=== PATIENT | female | born 1945 | race Caucasian/White ===

== ENCOUNTER 2018-08-14 09:37 | Inpatient (IN) | payer BC ==
[~2018-08-14] VITALS: Ht 157.5 cm; Wt 91.7 kg
--- NOTE | 2018-08-14 09:55 | PHYS DOC ---
Past Medical History Past Medical History: Diabetes-Type II, Hypertension Additional Past Medical Histor: blind in left eye Smoking: Cigarettes Adult General Chief Complaint Chief Complaint: SHORTNESS OF BREATH HPI HPI Patient is a 73-year-old female, smoker, who presents to the emergency department for evaluation. She states that she began experiencing shortness of breath over the past 2 days, along with a cough. EMS reported an oxygen saturation in the 70s upon their arrival, which improved to the upper 90s with a nonrebreather. The patient denies any pain. She does admit to a cough. She is a smoker, but states she has no other prior lung history that she is aware of. She denies any chest pain, dizziness or lightheadedness, numbness, or weakness. There are no alleviating or exacerbating factors to the patient's symptoms except that exertion worsens or shortness of breath. Review of Systems Review of Systems Constitutional: Denies fever or chills [] Eyes: Denies change in visual acuity, redness, or eye pain [] HENT: Denies nasal congestion or sore throat [] Respiratory: Reports cough and shortness of breath [] Cardiovascular: The patient denies any chest pain, palpitations, or orthopnea [] GI: Denies abdominal pain, nausea, vomiting, bloody stools or diarrhea [] : Denies dysuria or hematuria [] Musculoskeletal: Denies back pain or joint pain [] Integument: Denies rash or skin lesions [] Neurologic: Denies headache, focal weakness or sensory changes [] Endocrine: Denies polyuria or polydipsia [] All other systems were reviewed and found to be within normal limits, except as documented in this note. Current Medications Current Medications Current Medications Medications (Trade) Dose Ordered Sig/Nash Start Time Stop Time Status Last Admin Dose Admin Albuterol/ Ipratropium (Duoneb) 3 ml 1X ONCE 08/14/18 10:00 08/14/18 10:01 DC 08/14/18 10:14 3 ML Azithromycin 250 ml @ 250 mls/hr 1X ONCE 08/14/18 10:30 08/14/18 11:29 DC Ceftriaxone Sodium (Rocephin) 1 gm 1X ONCE 08/14/18 10:30 08/14/18 10:32 DC 08/14/18 11:58 1 GM Allergies Allergies Allergies Coded Allergies Type Severity Reaction Last Updated Verified No Known Drug Allergies 08/14/18 No Physical Exam Physical Exam PHYSICAL EXAM: CONSTITUTIONAL: Well developed, well nourished HEAD: normocephalic, atraumatic EENT: I the left cornea is opacified, the right pupil is round and reactive. Conjunctivae normal color, sclerae non-icteric; moist mucous membranes. NECK: Supple, non-tender; no meningismus. LUNGS: There are globally diminished breath sounds in all lung [place], with some mildly scattered coarse expiratory rhonchi, without wheezes or rales. HEART: Regular rate and rhythm, no murmur CHEST: No deformity; non-tender ABDOMEN: The abdomen is soft, and non-tender, no masses or bruits. EXTREM: Normal ROM; no deformity, no calf tenderness. Normal pulses palpable in all extremities. There is no pedal edema. SKIN: No rash; no diaphoresis NEURO: Alert; normal speech and cognition; CN's grossly intact; strength grossly intact without focal deficit. BACK: No CVA TTP. Current Patient Data Vital Signs Vital Signs Date Time Temp Pulse Resp B/P (MAP) Pulse Ox O2 Delivery O2 Flow Rate FiO2 08/14/18 10:14 92 Nasal Cannula 3.0 08/14/18 09:44 98.4 93 20 149/82 (104) 98.4 Lab Values Laboratory Tests Test 08/14/18 10:47 White Blood Count 17.9 x10^3/uL (4.0-11.0) H Red Blood Count 5.27 x10^6/uL (3.50-5.40) Hemoglobin 15.0 g/dL (12.0-15.5) Hematocrit 45.1 % (36.0-47.0) Mean Corpuscular Volume 86 fL (79-100) Mean Corpuscular Hemoglobin 28 pg (25-35) Mean Corpuscular Hemoglobin Concent 33 g/dL (31-37) Red Cell Distribution Width 15.0 % (11.5-14.5) H Platelet Count 327 x10^3/uL (140-400) Neutrophils (%) (Auto) 59 % (31-73) Lymphocytes (%) (Auto) 30 % (24-48) Monocytes (%) (Auto) 10 % (0-9) H Eosinophils (%) (Auto) 0 % (0-3) Basophils (%) (Auto) 0 % (0-3) Neutrophils # (Auto) 10.6 x10^3uL (1.8-7.7) H Lymphocytes # (Auto) 5.3 x10^3/uL (1.0-4.8) H Monocytes # (Auto) 1.9 x10^3/uL (0.0-1.1) H Eosinophils # (Auto) 0.0 x10^3/uL (0.0-0.7) Basophils # (Auto) 0.1 x10^3/uL (0.0-0.2) Platelet Estimate Pending Prothrombin Time 12.9 SEC (11.7-14.0) Prothrombin Time INR 1.0 (0.8-1.1) Sodium Level 132 mmol/L (136-145) L Potassium Level 3.8 mmol/L (3.5-5.1) Chloride Level 91 mmol/L (98-107) L Carbon Dioxide Level 33 mmol/L (21-32) H Anion Gap 8 (6-14) Blood Urea Nitrogen 25 mg/dL (7-20) H Creatinine 1.0 mg/dL (0.6-1.0) Estimated GFR (Cockcroft-Gault) 54.5 BUN/Creatinine Ratio 25 (6-20) H Glucose Level 148 mg/dL (70-99) H Lactic Acid Level 1.0 mmol/L (0.4-2.0) Calcium Level 8.7 mg/dL (8.5-10.1) Total Bilirubin 0.4 mg/dL (0.2-1.0) Aspartate Amino Transferase (AST) 37 U/L (15-37) Alanine Aminotransferase (ALT) 44 U/L (14-59) Alkaline Phosphatase 83 U/L (46-116) Troponin I Quantitative < 0.017 ng/mL (0.000-0.055) MN-Ike-J-Type Natriuretic Peptide 263 pg/mL (0-124) H Total Protein 7.9 g/dL (6.4-8.2) Albumin 3.1 g/dL (3.4-5.0) L Albumin/Globulin Ratio 0.6 (1.0-1.7) L Laboratory Tests 08/14/18 10:47 Laboratory Tests 08/14/18 10:47 EKG EKG [Normal sinus rhythm at a rate of 87 beats for minute, normal axis, normal intervals, there are no acute ischemic ST/T changes. Poor anterior R progression is present.] Radiology/Procedures Radiology/Procedures [PROCEDURE: CHEST PA & LATERAL EXAM: Chest, 2 views. HISTORY: Fatigue. Shortness of breath. COMPARISON: None. FINDINGS: 2 views of the chest are obtained. There is diffuse lower lobe predominant increased interstitial opacity suggesting interstitial infiltrate. There is no consolidation, pleural effusion or pneumothorax. There is mild enlargement of the cardiac silhouette. IMPRESSION: 1. Suspected diffuse lower lobe predominant interstitial infiltrate. This is likely superimposed on chronic interstitial changes. 2. Mild cardiomegaly.] Course & Med Decision Making Course & Med Decision Making Pertinent Labs and Imaging studies reviewed. (See chart for details) [12:00 PM: I spoke with the patient's PCP who will admit her for further evaluation and treatment.] Dragon Disclaimer Dragon Disclaimer This electronic medical record was generated, in whole or in part, using a voice recognition dictation system. Departure Departure Impression: Primary Impression: Pneumonia Additional Impression: Hypoxia Disposition: 09 ADMITTED INPATIENT Admitting Physician: Raymundo Fried Condition: GUARDED Problem Qualifiers LUZ MARINA WHITFIELD MD Aug 14, 2018 09:55
[2018-08-14] MEDS ORDERED: IPRATRPIUM/ALBUTEROL 0.5/2.5MG 3 ML NEBU. NEB ONE (10:00)
--- NOTE | 2018-08-14 10:24 | RAD ---
EXAM: Chest, 2 views. HISTORY: Fatigue. Shortness of breath. COMPARISON: None. FINDINGS: 2 views of the chest are obtained. There is diffuse lower lobe predominant increased interstitial opacity suggesting interstitial infiltrate. There is no consolidation, pleural effusion or pneumothorax. There is mild enlargement of the cardiac silhouette. IMPRESSION: 1. Suspected diffuse lower lobe predominant interstitial infiltrate. This is likely superimposed on chronic interstitial changes. 2. Mild cardiomegaly. Electronically signed by: Heather Hernandez MD (08/14/2018 10:21 AM) [id number]
[2018-08-14] MEDS ORDERED: AZITHRMYCN 500MG IVPB FOR OMNI 250 ML IV ONE (10:30)
[2018-08-14] MEDS ORDERED: cefTRIAXone IV Push 1 GM VIAL. IVP ONE (10:30)
[2018-08-14 11:08] LABS: BASO # 0.1 x10^3/uL (0.0-0.2); BASO % 0 % (0-3); EOS % 0 % (0-3); HEMATOCRIT 45.1 % (36.0-47.0); LYMPH # 5.3 x10^3/uL (1.0-4.8); LYMPH % 30 % (24-48); MEAN CORPUSCULAR HEMOGLOBIN 28 pg (25-35); MEAN CORPUSCULAR HGB CONC 33 g/dL (31-37); MEAN CORPUSCULAR VOLUME 86 fL (79-100); MONO # 1.9 x10^3/uL (0.0-1.1); MONO % 10 % (0-9); NEUT # 10.6 x10^3uL (1.8-7.7); NEUT % 59 % (31-73); PLATELET COUNT 327 x10^3/uL (140-400); RED BLOOD COUNT 5.27 x10^6/uL (3.50-5.40); WHITE BLOOD COUNT 17.9 x10^3/uL (4.0-11.0)
[2018-08-14 11:20] LABS: CALCIUM 8.7 mg/dL (8.5-10.1); GFR 54.5; POTASSIUM 3.8 mmol/L (3.5-5.1)
[2018-08-14 11:27] LABS: PROTHROMBIN TIME PATIENT 12.9 SEC (11.7-14.0)
[2018-08-14 11:32] LABS: ALBUMIN 3.1 g/dL (3.4-5.0); ALBUMIN/GLOBULIN RATIO 0.6 (1.0-1.7); TOTAL BILIRUBIN 0.4 mg/dL (0.2-1.0); TOTAL PROTEIN 7.9 g/dL (6.4-8.2)
[2018-08-14 12:10] LABS: INFLUENZA A PATIENT POSITIVE (NEGATIVE)
[2018-08-14 12:11] LABS: INFLUENZA B PATIENT NEGATIVE (NEGATIVE)
[2018-08-14] MEDS ORDERED: OSELTAMIVIR 75 MG CAPSULE PO SCH (12:30)
--- NOTE | 2018-08-14 12:48 | EKG ---
[facility] [address] [place] [address] Test Date: 2018-08-14 Test Time: 10:18:00 Pat Name: CARLOTTA BALL Department: Room: 512 1 Gender: F Major Account Representative: : 1945 Requested By: LUZ MARINA WHITFIELD Order Number: [id number] Reading MD: Uli Barron MD Measurements Intervals [place] Rate: 87 P: 71 ID: [id number] QRS: 43 QRSD: 70 T: 49 QT: 356 QTc: 429 Interpretive Statements SINUS RHYTHM Electronically Signed On 08-21-2018 13:45:55 CDT by Uli Barron MD
[2018-08-14 12:51] LABS: % ATYL 6 % (0-0); % BANDS 15 % (0-9); % LYMPHS 23 % (24-48); % METAS 2 % (0-0); % MONOS 14 % (0-10); % SEGS 40 % (35-66); NUCLEATED RBC 1
[2018-08-14 12:53] LABS: PLT ESTIMATE ADEQUATE (ADEQUATE); POLYCHROMASIA SLIGHT; TOXIC VACUOLATION SLIGHT
[2018-08-14 14:28] VITALS: BP 94/74
[2018-08-14] MEDS ORDERED: FERR325T14 PO (16:47)
[2018-08-14] MEDS ORDERED: ASPI81TA50 PO (16:47)
[2018-08-14] MEDS ORDERED: LISI1TAB3 PO (16:47)
[2018-08-14] MEDS ORDERED: METF500T16 PO (16:47)
[2018-08-14] MEDS ORDERED: GLIM2TAB2 PO (16:47)
[2018-08-14] MEDS ORDERED: OSEL75CA13 PO (16:48)
[2018-08-14] MEDS ORDERED: PRAV20TA PO (16:57)
[2018-08-14 19:00] VITALS: BP 116/54
[2018-08-14] MEDS: ATORVASTATIN CALCIUM 10 MG TABLET. PO SCH (22:27)
[2018-08-14] MEDS: NYSTATIN TOPICAL POWDER 15GM BOTTLE. TP SCH (22:27)
[2018-08-14] MEDS: OSELTAMIVIR 75 MG CAPSULE PO SCH (22:27)
[2018-08-14 23:00] VITALS: BP 125/42
[2018-08-14] MEDS ORDERED: ALBUTEROL SULFATE 2.5 MG/3 ML NEBU. NEB PRN (23:00)
[2018-08-15 02:54] VITALS: BP 119/52
--- NOTE | 2018-08-15 06:58 | PDOC1 ---
History and Physical Date of Admission Date of Admission 08/14/18 Identification/Chief Complaint Chief Complaint Cough Source Source: Patient History of Present Illness History of Present Illness Pt states that she hasn't been feeling well for the past 4-5 days. She has not really eaten very much and has overall felt very lousy. She has had fever, chills and a non productive cough. She has been short of air. She has had diarrhea for the past 4-5 days. Past Medical History Cardiovascular: HTN, Hyperlipidemia Pulmonary: No pertinent hx GI: No pertinent hx Heme/Onc: Cancer Hepatobiliary: No pertinent hx Psych: No pertinent hx Rheumatologic: No pertinent hx Infectious disease: No pertinent hx ENT: No pertinent hx Renal/: No pertinent hx Endocrine: Diabetes Dermatology: No pertinent hx Past Surgical History Past Surgical History: Tonsillectomy, Hysterectomy Family History Family History: Diabetes, Heart Disease, Stroke Social History Smoke: 1 pack per day ALCOHOL: none Drugs: None Current Problem List Problem List Problems Medical Problems: (1) Hypoxia Status: Acute (2) Pneumonia Status: Acute Current Medications Current Medications Current Medications Medications (Trade) Dose Ordered Sig/Nash Start Time Stop Time Status Last Admin Dose Admin Albuterol Sulfate (Ventolin Neb Soln) 2.5 mg PRN Q2HRS PRN 08/14/18 23:00 Albuterol/ Ipratropium (Duoneb) 3 ml 1X ONCE 08/14/18 10:00 08/14/18 10:01 DC 08/14/18 10:14 3 ML Aspirin (Ecotrin) 81 mg DAILY 08/15/18 09:00 Atorvastatin Calcium (Lipitor) 5 mg QHS 08/14/18 21:00 08/14/18 22:27 5 MG Azithromycin 250 ml @ 250 mls/hr 1X ONCE 08/14/18 10:30 08/14/18 11:29 DC 08/14/18 12:06 250 MLS/HR Ceftriaxone Sodium (Rocephin) 1 gm 1X ONCE 08/14/18 10:30 08/14/18 10:32 DC 08/14/18 11:58 1 GM Ferrous Sulfate (Feosol) 325 mg DAILY 08/15/18 09:00 Glimepiride (Amaryl) 2 mg DAILY 08/15/18 09:00 Hydrochlorothiazide (Microzide) 12.5 mg DAILY 08/15/18 09:00 Lisinopril (Prinivil) 10 mg DAILY 08/15/18 09:00 Metformin HCl (Glucophage) 1,000 mg DAILY 08/15/18 09:00 Non-Formulary Medication (Lisinopril/ Hydrochlorothiazide (Lisinopril-Hctz 10-12.5 Mg Tab)) 1 tab DAILY 08/15/18 09:00 UNV Nystatin (Nystop) 1 mena BID 08/14/18 21:00 08/14/18 22:27 1 MENA Oseltamivir Phosphate (Tamiflu) 75 mg BID 08/14/18 21:00 08/19/18 20:59 08/14/18 22:27 75 MG Allergies Allergies Allergies Coded Allergies Type Severity Reaction Last Updated Verified No Known Drug Allergies 08/14/18 No ROS Review of System CONSTITUTIONAL: + fever, chills EYES: +chronic blindness left eye SKIN: No rash or itching CARDIOVASCULAR: No chest pain, syncope, palpitations, or edema RESPIRATORY: +SOB, cough GASTROINTESTINAL: No nausea, vomiting or abdominal pain NEUROLOGICAL: No headaches or weakness ENDOCRINE: No cold or heat intolerance GENITOURINARY: No urgency or frequency of urination MUSCULOSKELETAL: No back pain or joint pain LYMPHATICS: No enlarged lymph nodes PSYCHIATRIC: No anxiety or depression Physical Exam Physical Exam GEN.: No apparent distress. Alert and oriented. HEENT: Head is normocephalic, atraumatic NECK: Supple. LUNGS: rhonchi throughout, faint expiratory wheezing HEART: RRR, S1, S2 present. Peripheral pulses intact ABDOMEN: Soft, nontender. Positive bowel sounds. EXTREMITIES: Without any cyanosis. NEUROLOGIC: Normal speech, normal tone PSYCHIATRIC: Normal affect, normal mood. SKIN: No ulcerations Vitals Vitals Vital Signs Date Time Temp Pulse Resp B/P (MAP) Pulse Ox O2 Delivery O2 Flow Rate FiO2 08/15/18 02:54 98.3 79 18 119/52 (74) 94 Nasal Cannula 3.0 98.3 Labs Labs Laboratory Tests Test 08/14/18 10:35 08/14/18 10:47 08/14/18 16:30 08/14/18 20:54 Influenza Type A Antigen Positive (NEGATIVE) Influenza Type B Antigen Negative (NEGATIVE) White Blood Count 17.9 x10^3/uL (4.0-11.0) Red Blood Count 5.27 x10^6/uL (3.50-5.40) Hemoglobin 15.0 g/dL (12.0-15.5) Hematocrit 45.1 % (36.0-47.0) Mean Corpuscular Volume 86 fL (79-100) Mean Corpuscular Hemoglobin 28 pg (25-35) Mean Corpuscular Hemoglobin Concent 33 g/dL (31-37) Red Cell Distribution Width 15.0 % (11.5-14.5) Platelet Count 327 x10^3/uL (140-400) Neutrophils (%) (Auto) 59 % (31-73) Lymphocytes (%) (Auto) 30 % (24-48) Monocytes (%) (Auto) 10 % (0-9) Eosinophils (%) (Auto) 0 % (0-3) Basophils (%) (Auto) 0 % (0-3) Neutrophils # (Auto) 10.6 x10^3uL (1.8-7.7) Lymphocytes # (Auto) 5.3 x10^3/uL (1.0-4.8) Monocytes # (Auto) 1.9 x10^3/uL (0.0-1.1) Eosinophils # (Auto) 0.0 x10^3/uL (0.0-0.7) Basophils # (Auto) 0.1 x10^3/uL (0.0-0.2) Segmented Neutrophils % 40 % (35-66) Band Neutrophils % 15 % (0-9) Lymphocytes % 23 % (24-48) Atypical Lymphocytes % (Manual) 6 % (0-0) Monocytes % 14 % (0-10) Metamyelocytes % 2 % (0-0) Nucleated Red Blood Cells 1 Toxic Vacuolation Slight Platelet Estimate Adequate (ADEQUATE) Large Platelets Few Giant Platelets Occ Polychromasia Slight Prothrombin Time 12.9 SEC (11.7-14.0) Prothromb Time International Ratio 1.0 (0.8-1.1) Sodium Level 132 mmol/L (136-145) Potassium Level 3.8 mmol/L (3.5-5.1) Chloride Level 91 mmol/L (98-107) Carbon Dioxide Level 33 mmol/L (21-32) Anion Gap 8 (6-14) Blood Urea Nitrogen 25 mg/dL (7-20) Creatinine 1.0 mg/dL (0.6-1.0) Estimated GFR (Cockcroft-Gault) 54.5 BUN/Creatinine Ratio 25 (6-20) Glucose Level 148 mg/dL (70-99) Lactic Acid Level 1.0 mmol/L (0.4-2.0) Calcium Level 8.7 mg/dL (8.5-10.1) Total Bilirubin 0.4 mg/dL (0.2-1.0) Aspartate Amino Transf (AST/SGOT) 37 U/L (15-37) Alanine Aminotransferase (ALT/SGPT) 44 U/L (14-59) Alkaline Phosphatase 83 U/L (46-116) Troponin I Quantitative < 0.017 ng/mL (0.000-0.055) VC-Grf-N-Type Natriuretic Peptide 263 pg/mL (0-124) Total Protein 7.9 g/dL (6.4-8.2) Albumin 3.1 g/dL (3.4-5.0) Albumin/Globulin Ratio 0.6 (1.0-1.7) Glucose (Fingerstick) 118 mg/dL (70-99) 156 mg/dL (70-99) Laboratory Tests Test 08/14/18 10:35 08/14/18 10:47 08/14/18 16:30 08/14/18 20:54 Influenza Type A Antigen Positive (NEGATIVE) Influenza Type B Antigen Negative (NEGATIVE) White Blood Count 17.9 x10^3/uL (4.0-11.0) Red Blood Count 5.27 x10^6/uL (3.50-5.40) Hemoglobin 15.0 g/dL (12.0-15.5) Hematocrit 45.1 % (36.0-47.0) Mean Corpuscular Volume 86 fL (79-100) Mean Corpuscular Hemoglobin 28 pg (25-35) Mean Corpuscular Hemoglobin Concent 33 g/dL (31-37) Red Cell Distribution Width 15.0 % (11.5-14.5) Platelet Count 327 x10^3/uL (140-400) Neutrophils (%) (Auto) 59 % (31-73) Lymphocytes (%) (Auto) 30 % (24-48) Monocytes (%) (Auto) 10 % (0-9) Eosinophils (%) (Auto) 0 % (0-3) Basophils (%) (Auto) 0 % (0-3) Neutrophils # (Auto) 10.6 x10^3uL (1.8-7.7) Lymphocytes # (Auto) 5.3 x10^3/uL (1.0-4.8) Monocytes # (Auto) 1.9 x10^3/uL (0.0-1.1) Eosinophils # (Auto) 0.0 x10^3/uL (0.0-0.7) Basophils # (Auto) 0.1 x10^3/uL (0.0-0.2) Segmented Neutrophils % 40 % (35-66) Band Neutrophils % 15 % (0-9) Lymphocytes % 23 % (24-48) Atypical Lymphocytes % (Manual) 6 % (0-0) Monocytes % 14 % (0-10) Metamyelocytes % 2 % (0-0) Nucleated Red Blood Cells 1 Toxic Vacuolation Slight Platelet Estimate Adequate (ADEQUATE) Large Platelets Few Giant Platelets Occ Polychromasia Slight Prothrombin Time 12.9 SEC (11.7-14.0) Prothromb Time International Ratio 1.0 (0.8-1.1) Sodium Level 132 mmol/L (136-145) Potassium Level 3.8 mmol/L (3.5-5.1) Chloride Level 91 mmol/L (98-107) Carbon Dioxide Level 33 mmol/L (21-32) Anion Gap 8 (6-14) Blood Urea Nitrogen 25 mg/dL (7-20) Creatinine 1.0 mg/dL (0.6-1.0) Estimated GFR (Cockcroft-Gault) 54.5 BUN/Creatinine Ratio 25 (6-20) Glucose Level 148 mg/dL (70-99) Lactic Acid Level 1.0 mmol/L (0.4-2.0) Calcium Level 8.7 mg/dL (8.5-10.1) Total Bilirubin 0.4 mg/dL (0.2-1.0) Aspartate Amino Transf (AST/SGOT) 37 U/L (15-37) Alanine Aminotransferase (ALT/SGPT) 44 U/L (14-59) Alkaline Phosphatase 83 U/L (46-116) Troponin I Quantitative < 0.017 ng/mL (0.000-0.055) QM-Ibl-Y-Type Natriuretic Peptide 263 pg/mL (0-124) Total Protein 7.9 g/dL (6.4-8.2) Albumin 3.1 g/dL (3.4-5.0) Albumin/Globulin Ratio 0.6 (1.0-1.7) Glucose (Fingerstick) 118 mg/dL (70-99) 156 mg/dL (70-99) VTE Prophylaxis Ordered VTE Prophylaxis Devices: No VTE Pharmacological Prophylaxi: No Assessment/Plan Assessment/Plan Pt is a 73yo CF admitted for pneumonia and influenza a 1)Pneumonia- pt continued on Levaquin 2)Flu A- pt receiving Tamiflu, will also start Prednisone. Likely has element of COPD but has never been diagnosed 3)DM2- previously not at goal. Repeat HbA1C pending. Pt continued on Glimiperide 2mg qday and Metformin 500mg ER 2tabs qday 4)HTN- currently normotensive. Will resume pt's Lisinopril 20mg but hold her HCTZ 5)HLD- pt normally on Pravastatin, receiving Atorvastatin in the hospital 6)CLL- pt does not believe that she has this diagnosis. WBC improved from 20.7 to 17 7)CKD- stage 2 JASWANT CUMMINGS MD Aug 15, 2018 06:58
[2018-08-15 07:00] VITALS: BP 97/48
[2018-08-15 07:57] LABS: BASO # 0.1 x10^3/uL (0.0-0.2); BASO % 0 % (0-3); CALCIUM 8.4 mg/dL (8.5-10.1); EOS % 0 % (0-3); GFR 54.5; HEMATOCRIT 46.9 % (36.0-47.0); HEMOGLOBIN 14.9 g/dL (12.0-15.5); LYMPH # 5.7 x10^3/uL (1.0-4.8); LYMPH % 32 % (24-48); MEAN CORPUSCULAR HEMOGLOBIN 28 pg (25-35); MEAN CORPUSCULAR HGB CONC 32 g/dL (31-37); MEAN CORPUSCULAR VOLUME 87 fL (79-100); MONO # 1.9 x10^3/uL (0.0-1.1); MONO % 11 % (0-9); NEUT # 9.8 x10^3uL (1.8-7.7); NEUT % 56 % (31-73); PLATELET COUNT 286 x10^3/uL (140-400); POTASSIUM 4.3 mmol/L (3.5-5.1); RED BLOOD COUNT 5.37 x10^6/uL (3.50-5.40); RED CELL DISTRIBUTION WIDTH 15.2 % (11.5-14.5); WHITE BLOOD COUNT 17.5 x10^3/uL (4.0-11.0)
--- NOTE | 2018-08-15 08:57 | NUR ---
IP: Pt is influenza + requiring droplet precautions for 5 days and 24 hours without a fever, whichever is longest.
[2018-08-15] MEDS ORDERED: LISINOPRIL 10 MG TABLET PO SCH (09:00)
[2018-08-15] MEDS ORDERED: NON FORMULARY ITEM (Lisinopril/Hydrochlorothiazide (Lisinopril-Hctz 10-12.5 Mg Tab) 1 TAB) PO SCH (09:00)
[2018-08-15] MEDS: LISINOPRIL 20 MG TABLET PO SCH (09:00)
[2018-08-15] MEDS ORDERED: hydroCHLOROthiazide 12.5 MG CAPSULE PO SCH (09:00)
--- NOTE | 2018-08-15 09:21 | NUR ---
SW following pt for anticipated dc needs. Chart reviewed and discussed with RN. Pt lives at home alone and has home 02. RN reported pt is x1 assistance with ambulation. No discharge recommendations noted at this time. Will continue to assess needs.
[2018-08-15] MEDS: OSELTAMIVIR 75 MG CAPSULE PO SCH (10:17)
[2018-08-15] MEDS: NYSTATIN TOPICAL POWDER 15GM BOTTLE. TP SCH ×2 (10:18→21:57)
[2018-08-15] MEDS: predniSONE 20 MG TABLET PO SCH (10:19)
[2018-08-15] MEDS: metFORMIN 500 MG TABLET PO SCH (10:24)
[2018-08-15] MEDS: GLIMEPIRIDE 2 MG TABLET. PO SCH (10:24)
[2018-08-15] MEDS: FERROUS SULFATE 325 MG TABLET. PO SCH (10:25)
[2018-08-15] MEDS: ASPIRIN ENTERIC COATED 81 MG TABLET.DR. PO SCH (10:28)
[2018-08-15 11:00] VITALS: BP 128/62
[2018-08-15] MEDS: IPRATRPIUM/ALBUTEROL 0.5/2.5MG 3 ML NEBU. NEB SCH ×3 (12:17→20:00)
--- NOTE | 2018-08-15 12:17 | CONS ---
DATE OF CONSULTATION: PULMONARY CONSULTATION ATTENDING PHYSICIAN: Raymundo Fried MD. REASON FOR CONSULTATION: Dyspnea and cough. HISTORY OF PRESENT ILLNESS: The patient is a 73-year-old who had smoked for at least 40-45 years until 5 days ago. She was brought into the hospital with complaint of coughing. She had some subjective fever at home. She had some mild shortness of breath. She had some diarrhea as well. No vomiting. No headaches. The patient was seen in the Emergency Room. Her influenza screen was positive for influenza A. Her chest x-ray was reviewed by me. There appears to be a minimal interstitial infiltrates at the bases. I have been asked to see her for further evaluation. PAST MEDICAL HISTORY: Significant for history of hypertension, hyperlipidemia and suspected COPD with ongoing tobaccoism. PAST SURGICAL HISTORY: Tonsillectomy, hysterectomy. FAMILY HISTORY: Diabetes and heart disease and stroke. SOCIAL HISTORY: Smoker for at least 45 years, 1 pack per day, quit 5 days ago. ALLERGIES: None. CURRENT MEDICATIONS: Reviewed as listed in the MRAD including oral prednisone, Tamiflu and antibiotics. REVIEW OF SYSTEMS: Twelve-point system obtained. Pertinent positives discussed in my present illness, otherwise noncontributory. All systems that were negative were reviewed as well. PHYSICAL EXAMINATION: VITAL SIGNS: Reviewed. Blood pressure is stable, pulse ox 92% on 3 liters, afebrile today. HEENT: Sclerae nonicteric. NECK: Supple. LUNGS: With diminished breath sounds. CARDIOVASCULAR: Regular rate and rhythm. ABDOMEN: Soft, nontender, obese. EXTREMITIES: With trace pitting edema. LABORATORY DATA: Reviewed. BUN and creatinine 27 and 1.0. White cell count 17.5, hemoglobin 14.9 and platelets are 286. IMPRESSION: 1. Influenza A pneumonia, cannot exclude a superimposed bacterial pneumonia. 2. Underlying chronic obstructive pulmonary disease from at least 45 years of tobacco use. Unknown FEV1. Quit just 5 days ago. 3. Acute hypoxic respiratory failure secondary to pneumonia and underlying chronic obstructive pulmonary disease. 4. Underlying obesity with a body mass index of 37. RECOMMENDATIONS: 1. Continue with present oxygen with gradual wean and keep saturation 92% and above. 2. Continue with current Tamiflu. 3. Continue with oral Levaquin. 4. We will add DuoNebs. 5. Follow chest x-ray in few days. 6. Influenza precautions. 7. Discussed with RN and Dr. Chase. ANNA PAUL MD DR: LUCIA/jacinto JOB#: [id number] / [id number]
[2018-08-15 15:00] VITALS: BP 107/52
[2018-08-15 19:00] VITALS: BP 124/63
[2018-08-15] MEDS: LOPERAMIDE 2 MG CAPSULE PO PRN (19:57)
[2018-08-15] MEDS: ATORVASTATIN CALCIUM 10 MG TABLET. PO SCH (21:57)
[2018-08-15] MEDS: OSELTAMIVIR 30 MG CAPSULE PO SCH (21:57)
[2018-08-15 22:14] LABS: HEMOGLOBIN A1C 8.3 % (4.8-5.6)
[2018-08-15 22:56] VITALS: BP 109/58
[2018-08-16 03:00] VITALS: BP 119/57
[2018-08-16 07:15] VITALS: BP 115/53
[2018-08-16] MEDS: IPRATRPIUM/ALBUTEROL 0.5/2.5MG 3 ML NEBU. NEB SCH ×4 (07:51→20:12)
--- NOTE | 2018-08-16 08:28 | PDOC ---
PULMONARY PROGRESS NOTES Subjective sob better, no cough, no pain, is tired Vitals Vital Signs Date Time Temp Pulse Resp B/P (MAP) Pulse Ox O2 Delivery O2 Flow Rate FiO2 08/16/18 07:52 Nasal Cannula 4.0 08/16/18 07:15 97.4 72 20 115/53 (73) 91 97.4 ROS: No Nausea, No Chest Pain General: Alert HEENT: Other (nc at perrl) Lungs: Crackles Cardiovascular: S1, S2 Abdomen: Soft Neuro Exam: Alert Extremities: No Edema Skin: Warm Labs Laboratory Tests Test 08/14/18 10:35 08/14/18 10:47 08/14/18 16:30 08/14/18 20:54 Influenza Type A Antigen Positive (NEGATIVE) Influenza Type B Antigen Negative (NEGATIVE) White Blood Count 17.9 x10^3/uL (4.0-11.0) Red Blood Count 5.27 x10^6/uL (3.50-5.40) Hemoglobin 15.0 g/dL (12.0-15.5) Hematocrit 45.1 % (36.0-47.0) Mean Corpuscular Volume 86 fL (79-100) Mean Corpuscular Hemoglobin 28 pg (25-35) Mean Corpuscular Hemoglobin Concent 33 g/dL (31-37) Red Cell Distribution Width 15.0 % (11.5-14.5) Platelet Count 327 x10^3/uL (140-400) Neutrophils (%) (Auto) 59 % (31-73) Lymphocytes (%) (Auto) 30 % (24-48) Monocytes (%) (Auto) 10 % (0-9) Eosinophils (%) (Auto) 0 % (0-3) Basophils (%) (Auto) 0 % (0-3) Neutrophils # (Auto) 10.6 x10^3uL (1.8-7.7) Lymphocytes # (Auto) 5.3 x10^3/uL (1.0-4.8) Monocytes # (Auto) 1.9 x10^3/uL (0.0-1.1) Eosinophils # (Auto) 0.0 x10^3/uL (0.0-0.7) Basophils # (Auto) 0.1 x10^3/uL (0.0-0.2) Segmented Neutrophils % 40 % (35-66) Band Neutrophils % 15 % (0-9) Lymphocytes % 23 % (24-48) Atypical Lymphocytes % (Manual) 6 % (0-0) Monocytes % 14 % (0-10) Metamyelocytes % 2 % (0-0) Nucleated Red Blood Cells 1 Toxic Vacuolation Slight Platelet Estimate Adequate (ADEQUATE) Large Platelets Few Giant Platelets Occ Polychromasia Slight Prothrombin Time 12.9 SEC (11.7-14.0) Prothromb Time International Ratio 1.0 (0.8-1.1) Sodium Level 132 mmol/L (136-145) Potassium Level 3.8 mmol/L (3.5-5.1) Chloride Level 91 mmol/L (98-107) Carbon Dioxide Level 33 mmol/L (21-32) Anion Gap 8 (6-14) Blood Urea Nitrogen 25 mg/dL (7-20) Creatinine 1.0 mg/dL (0.6-1.0) Estimated GFR (Cockcroft-Gault) 54.5 BUN/Creatinine Ratio 25 (6-20) Glucose Level 148 mg/dL (70-99) Lactic Acid Level 1.0 mmol/L (0.4-2.0) Calcium Level 8.7 mg/dL (8.5-10.1) Total Bilirubin 0.4 mg/dL (0.2-1.0) Aspartate Amino Transf (AST/SGOT) 37 U/L (15-37) Alanine Aminotransferase (ALT/SGPT) 44 U/L (14-59) Alkaline Phosphatase 83 U/L (46-116) Troponin I Quantitative < 0.017 ng/mL (0.000-0.055) GS-Dsc-E-Type Natriuretic Peptide 263 pg/mL (0-124) Total Protein 7.9 g/dL (6.4-8.2) Albumin 3.1 g/dL (3.4-5.0) Albumin/Globulin Ratio 0.6 (1.0-1.7) Glucose (Fingerstick) 118 mg/dL (70-99) 156 mg/dL (70-99) Test 08/15/18 07:35 08/15/18 07:57 08/15/18 11:50 08/15/18 16:49 White Blood Count 17.5 x10^3/uL (4.0-11.0) Red Blood Count 5.37 x10^6/uL (3.50-5.40) Hemoglobin 14.9 g/dL (12.0-15.5) Hematocrit 46.9 % (36.0-47.0) Mean Corpuscular Volume 87 fL (79-100) Mean Corpuscular Hemoglobin 28 pg (25-35) Mean Corpuscular Hemoglobin Concent 32 g/dL (31-37) Red Cell Distribution Width 15.2 % (11.5-14.5) Platelet Count 286 x10^3/uL (140-400) Neutrophils (%) (Auto) 56 % (31-73) Lymphocytes (%) (Auto) 32 % (24-48) Monocytes (%) (Auto) 11 % (0-9) Eosinophils (%) (Auto) 0 % (0-3) Basophils (%) (Auto) 0 % (0-3) Neutrophils # (Auto) 9.8 x10^3uL (1.8-7.7) Lymphocytes # (Auto) 5.7 x10^3/uL (1.0-4.8) Monocytes # (Auto) 1.9 x10^3/uL (0.0-1.1) Eosinophils # (Auto) 0.0 x10^3/uL (0.0-0.7) Basophils # (Auto) 0.1 x10^3/uL (0.0-0.2) Sodium Level 133 mmol/L (136-145) Potassium Level 4.3 mmol/L (3.5-5.1) Chloride Level 93 mmol/L (98-107) Carbon Dioxide Level 28 mmol/L (21-32) Anion Gap 12 (6-14) Blood Urea Nitrogen 27 mg/dL (7-20) Creatinine 1.0 mg/dL (0.6-1.0) Estimated GFR (Cockcroft-Gault) 54.5 Glucose Level 168 mg/dL (70-99) Hemoglobin A1c 8.3 % (4.8-5.6) Calcium Level 8.4 mg/dL (8.5-10.1) Glucose (Fingerstick) 155 mg/dL (70-99) 238 mg/dL (70-99) 202 mg/dL (70-99) Test 08/15/18 20:39 08/16/18 07:15 Glucose (Fingerstick) 263 mg/dL (70-99) 158 mg/dL (70-99) Laboratory Tests Test 08/15/18 11:50 08/15/18 16:49 08/15/18 20:39 08/16/18 07:15 Glucose (Fingerstick) 238 mg/dL (70-99) 202 mg/dL (70-99) 263 mg/dL (70-99) 158 mg/dL (70-99) Medications Active Scripts Medications Dose Route/Sig Max Daily Dose Days Date Category Pravachol (Pravastatin Sodium) 20 Mg Tablet 1 Tab PO QHS 08/14/18 Reported Oseltamivir Phosphate 75 Mg Capsule 75 Mg PO BID 08/14/18 Reported Ferrous Sulfate 325 Mg Tablet 325 Mg PO DAILY 08/14/18 Reported Aspir-Low (Aspirin) 81 Mg Tablet.dr 81 Mg PO DAILY 08/14/18 Reported Metformin Hcl 500 Mg Tablet 1,000 Mg PO DAILY 08/14/18 Reported Lisinopril-Hctz 10-12.5 Mg Tab (Lisinopril/Hydrochlorothiazide) 1 Each Tablet 1 Tab PO DAILY 08/14/18 Reported Glimepiride 2 Mg Tablet 2 Mg PO DAILY 08/14/18 Reported Impression . IMPRESSION: 1. Influenza A pneumonia, cannot exclude a superimposed bacterial pneumonia. 2. Underlying chronic obstructive pulmonary disease from at least 45 years of tobacco use. Unknown FEV1. Quit just 5 days ago. 3. Acute hypoxic respiratory failure secondary to pneumonia and underlying chronic obstructive pulmonary disease. 4. Underlying obesity with a body mass index of 37. ? SCOTT Plan . RECOMMENDATIONS: 1. oxygen titration to keep 02 sat 92% 2. Continue with current Tamiflu. 3. Continue with oral Levaquin. 4. BD, DuoNebs. 5. Follow chest x-ray in few days. 6. Influenza precautions. 7. psg out pt Discussed with pt JAMES CAMERON MD Aug 16, 2018 08:28
[2018-08-16] MEDS: ASPIRIN ENTERIC COATED 81 MG TABLET.DR. PO SCH (08:31)
[2018-08-16] MEDS: predniSONE 20 MG TABLET PO SCH (08:31)
[2018-08-16] MEDS: FERROUS SULFATE 325 MG TABLET. PO SCH (08:31)
[2018-08-16] MEDS: metFORMIN 500 MG TABLET PO SCH (08:31)
[2018-08-16] MEDS: NYSTATIN TOPICAL POWDER 15GM BOTTLE. TP SCH ×2 (08:32→20:59)
[2018-08-16] MEDS: OSELTAMIVIR 30 MG CAPSULE PO SCH ×2 (08:32→20:56)
[2018-08-16] MEDS: GLIMEPIRIDE 2 MG TABLET. PO SCH (08:32)
[2018-08-16] MEDS: LISINOPRIL 20 MG TABLET PO SCH (08:32)
--- NOTE | 2018-08-16 10:03 | PDOC ---
PROGRESS NOTES Subjective Subjective Patient C/O not feeling better yet. Still weak and SOB Objective Objective Vital Signs Date Time Temp Pulse Resp B/P (MAP) Pulse Ox O2 Delivery O2 Flow Rate FiO2 08/16/18 08:32 72 115/53 08/16/18 08:00 Nasal Cannula 4.0 08/16/18 07:15 97.4 20 91 97.4 Intake and Output 08/16/18 06:59 Intake Total 210 ml Balance 210 ml Intake Oral 210 ml # Voids 3 # Bowel Movements 1 Physical Exam Abdomen: Normal bowel sounds Heart: Regular rate Extremities: No edema General: Alert Lungs: Other (distant) Assessment Assessment Problems Medical Problems: (1) Hypoxia Status: Acute (2) Pneumonia Status: Acute Acute on chronic respiratory failure Pneumonia Flu A DM2 HTN HLD CLL CKD- stage 2 Plan Plan of Care Continue pulm toilet Continue IV antibx and tamaflu Proceed with PT/OT Comment Review of Relevant I have reviewed the following items candice (where applicable) has been applied. Labs Laboratory Tests Test 08/14/18 10:35 08/14/18 10:47 08/14/18 16:30 08/14/18 20:54 Influenza Type A Antigen Positive (NEGATIVE) Influenza Type B Antigen Negative (NEGATIVE) White Blood Count 17.9 x10^3/uL (4.0-11.0) Red Blood Count 5.27 x10^6/uL (3.50-5.40) Hemoglobin 15.0 g/dL (12.0-15.5) Hematocrit 45.1 % (36.0-47.0) Mean Corpuscular Volume 86 fL (79-100) Mean Corpuscular Hemoglobin 28 pg (25-35) Mean Corpuscular Hemoglobin Concent 33 g/dL (31-37) Red Cell Distribution Width 15.0 % (11.5-14.5) Platelet Count 327 x10^3/uL (140-400) Neutrophils (%) (Auto) 59 % (31-73) Lymphocytes (%) (Auto) 30 % (24-48) Monocytes (%) (Auto) 10 % (0-9) Eosinophils (%) (Auto) 0 % (0-3) Basophils (%) (Auto) 0 % (0-3) Neutrophils # (Auto) 10.6 x10^3uL (1.8-7.7) Lymphocytes # (Auto) 5.3 x10^3/uL (1.0-4.8) Monocytes # (Auto) 1.9 x10^3/uL (0.0-1.1) Eosinophils # (Auto) 0.0 x10^3/uL (0.0-0.7) Basophils # (Auto) 0.1 x10^3/uL (0.0-0.2) Segmented Neutrophils % 40 % (35-66) Band Neutrophils % 15 % (0-9) Lymphocytes % 23 % (24-48) Atypical Lymphocytes % (Manual) 6 % (0-0) Monocytes % 14 % (0-10) Metamyelocytes % 2 % (0-0) Nucleated Red Blood Cells 1 Toxic Vacuolation Slight Platelet Estimate Adequate (ADEQUATE) Large Platelets Few Giant Platelets Occ Polychromasia Slight Prothrombin Time 12.9 SEC (11.7-14.0) Prothromb Time International Ratio 1.0 (0.8-1.1) Sodium Level 132 mmol/L (136-145) Potassium Level 3.8 mmol/L (3.5-5.1) Chloride Level 91 mmol/L (98-107) Carbon Dioxide Level 33 mmol/L (21-32) Anion Gap 8 (6-14) Blood Urea Nitrogen 25 mg/dL (7-20) Creatinine 1.0 mg/dL (0.6-1.0) Estimated GFR (Cockcroft-Gault) 54.5 BUN/Creatinine Ratio 25 (6-20) Glucose Level 148 mg/dL (70-99) Lactic Acid Level 1.0 mmol/L (0.4-2.0) Calcium Level 8.7 mg/dL (8.5-10.1) Total Bilirubin 0.4 mg/dL (0.2-1.0) Aspartate Amino Transf (AST/SGOT) 37 U/L (15-37) Alanine Aminotransferase (ALT/SGPT) 44 U/L (14-59) Alkaline Phosphatase 83 U/L (46-116) Troponin I Quantitative < 0.017 ng/mL (0.000-0.055) QS-Ont-S-Type Natriuretic Peptide 263 pg/mL (0-124) Total Protein 7.9 g/dL (6.4-8.2) Albumin 3.1 g/dL (3.4-5.0) Albumin/Globulin Ratio 0.6 (1.0-1.7) Glucose (Fingerstick) 118 mg/dL (70-99) 156 mg/dL (70-99) Test 08/15/18 07:35 08/15/18 07:57 08/15/18 11:50 08/15/18 16:49 White Blood Count 17.5 x10^3/uL (4.0-11.0) Red Blood Count 5.37 x10^6/uL (3.50-5.40) Hemoglobin 14.9 g/dL (12.0-15.5) Hematocrit 46.9 % (36.0-47.0) Mean Corpuscular Volume 87 fL (79-100) Mean Corpuscular Hemoglobin 28 pg (25-35) Mean Corpuscular Hemoglobin Concent 32 g/dL (31-37) Red Cell Distribution Width 15.2 % (11.5-14.5) Platelet Count 286 x10^3/uL (140-400) Neutrophils (%) (Auto) 56 % (31-73) Lymphocytes (%) (Auto) 32 % (24-48) Monocytes (%) (Auto) 11 % (0-9) Eosinophils (%) (Auto) 0 % (0-3) Basophils (%) (Auto) 0 % (0-3) Neutrophils # (Auto) 9.8 x10^3uL (1.8-7.7) Lymphocytes # (Auto) 5.7 x10^3/uL (1.0-4.8) Monocytes # (Auto) 1.9 x10^3/uL (0.0-1.1) Eosinophils # (Auto) 0.0 x10^3/uL (0.0-0.7) Basophils # (Auto) 0.1 x10^3/uL (0.0-0.2) Sodium Level 133 mmol/L (136-145) Potassium Level 4.3 mmol/L (3.5-5.1) Chloride Level 93 mmol/L (98-107) Carbon Dioxide Level 28 mmol/L (21-32) Anion Gap 12 (6-14) Blood Urea Nitrogen 27 mg/dL (7-20) Creatinine 1.0 mg/dL (0.6-1.0) Estimated GFR (Cockcroft-Gault) 54.5 Glucose Level 168 mg/dL (70-99) Hemoglobin A1c 8.3 % (4.8-5.6) Calcium Level 8.4 mg/dL (8.5-10.1) Glucose (Fingerstick) 155 mg/dL (70-99) 238 mg/dL (70-99) 202 mg/dL (70-99) Test 08/15/18 20:39 08/16/18 07:15 Glucose (Fingerstick) 263 mg/dL (70-99) 158 mg/dL (70-99) Laboratory Tests Test 08/15/18 11:50 08/15/18 16:49 08/15/18 20:39 08/16/18 07:15 Glucose (Fingerstick) 238 mg/dL (70-99) 202 mg/dL (70-99) 263 mg/dL (70-99) 158 mg/dL (70-99) Microbiology 08/14/18 Blood Culture - Preliminary, Resulted NO GROWTH AFTER 1 DAY Medications Current Medications Albuterol/ Ipratropium (Duoneb) 3 ml 1X ONCE NEB Last administered on at 10:14; Start 08/14/18 at 10:00; Stop 08/14/18 at 10:01; Status DC Ceftriaxone Sodium (Rocephin) 1 gm 1X ONCE IVP Last administered on 08/14/18at 11:58; Start 08/14/18 at 10:30; Stop 08/14/18 at 10:32; Status DC Azithromycin 250 ml @ 250 mls/hr 1X ONCE IV Last administered on 08/14/18at 12 :06; Start 08/14/18 at 10:30; Stop 08/14/18 at 11:29; Status DC Oseltamivir Phosphate (Tamiflu) 75 mg BID PO Last administered on 08/14/18at 12: 28; Start 08/14/18 at 12:30; Stop 08/14/18 at 20:26; Status DC Nystatin (Nystop) 1 mena BID TP Last administered on 08/16/18at 08:32; Start at 21:00 Aspirin (Ecotrin) 81 mg DAILY PO Last administered on 08/16/18at 08:31; Start at 09:00 Ferrous Sulfate (Feosol) 325 mg DAILY PO Last administered on 08/16/18 08:31; Start 08/15/18 at 09:00 Glimepiride (Amaryl) 2 mg DAILY PO Last administered on 08/16/18 08:32; Start 08/15/18 at 09:00 Oseltamivir Phosphate (Tamiflu) 75 mg BID PO Last administered on 08/15/18 10: 17; Start 08/14/18 at 21:00; Stop 08/15/18 at 11:51; Status DC Non-Formulary Medication (Lisinopril/ Hydrochlorothiazide (Lisinopril-Hctz 10- 12.5 Mg Tab)) 1 tab DAILY PO ; Start 08/15/18 at 09:00; Status UNV Metformin HCl (Glucophage) 1,000 mg DAILY PO Last administered on 08/16/18 08: 31; Start 08/15/18 at 09:00 Atorvastatin Calcium (Lipitor) 5 mg QHS PO Last administered on 08/15/18 21:57 ; Start 08/14/18 at 21:00 Lisinopril (Prinivil) 10 mg DAILY PO ; Start 08/15/18 at 09:00; Stop 08/15/18 at 09:00; Status DC Hydrochlorothiazide (Microzide) 12.5 mg DAILY PO ; Start 08/15/18 at 09:00; Stop 08/15/18 at 09:00; Status DC Albuterol Sulfate (Ventolin Neb Soln) 2.5 mg PRN Q2HRS PRN NEB SHORTNESS OF BREATH; Start 08/14/18 at 23:00 Lisinopril (Prinivil) 20 mg DAILY PO Last administered on 08/16/18 08:32; Start 08/15/18 at 09:00 Levofloxacin (Levaquin) 500 mg DAILY06 PO Last administered on 08/16/18 06:06 ; Start 08/15/18 at 07:00 Prednisone (Prednisone) 60 mg DAILY PO Last administered on 08/16/18 08:31; Start 08/15/18 at 09:00 Loperamide HCl (Imodium) 2 mg PRN Q15MIN PRN PO DIARRHEA Last administered on 19:57; Start 08/15/18 at 08:00 Oseltamivir Phosphate (Tamiflu) 30 mg BID PO Last administered on 08/16/18at 08: 32; Start 08/15/18 at 21:00; Stop 08/19/18 at 20:59 Albuterol/ Ipratropium (Duoneb) 3 ml RTQID NEB Last administered on 08/16/18at 07:51; Start 08/15/18 at 12:00 Active Scripts Active Reported Pravachol (Pravastatin Sodium) 20 Mg Tablet 1 Tab PO QHS Oseltamivir Phosphate 75 Mg Capsule 75 Mg PO BID Ferrous Sulfate 325 Mg Tablet 325 Mg PO DAILY Aspir-Low (Aspirin) 81 Mg Tablet.dr 81 Mg PO DAILY Metformin Hcl 500 Mg Tablet 1,000 Mg PO DAILY Lisinopril-Hctz 10-12.5 Mg Tab (Lisinopril/Hydrochlorothiazide) 1 Each Tablet 1 Tab PO DAILY Glimepiride 2 Mg Tablet 2 Mg PO DAILY Vitals/I & O Vital Sign - Last 24 Hours 08/15/18 08/15/18 08/15/18 08/15/18 11:00 12:19 15:00 16:18 Temp 97.7 98.4 97.7 98.4 Pulse 88 81 Resp 18 18 B/P (MAP) 128/62 (84) 107/52 (70) Pulse Ox 92 93 95 91 O2 Delivery Nasal Cannula Nasal Cannula Nasal Cannula Nasal Cannula O2 Flow Rate 3.0 4.0 3.0 4.0 08/15/18 08/15/18 08/15/18 08/15/18 19:00 20:28 20:37 22:56 Temp 97.9 97.7 97.9 97.7 Pulse 90 87 Resp 18 18 B/P (MAP) 124/63 (83) 109/58 (75) Pulse Ox 94 93 91 O2 Delivery Nasal Cannula Nasal Cannula Nasal Cannula Nasal Cannula O2 Flow Rate 3.0 3.0 4.0 3.0 08/16/18 08/16/18 08/16/18 08/16/18 03:00 07:15 07:52 08:00 Temp 97.7 97.4 97.7 97.4 Pulse 80 72 Resp 18 20 B/P (MAP) 119/57 (77) 115/53 (73) Pulse Ox 90 91 O2 Delivery Nasal Cannula Nasal Cannula Nasal Cannula Nasal Cannula O2 Flow Rate 3.0 3.0 4.0 4.0 08/16/18 08:32 Pulse 72 B/P (MAP) 115/53 Intake and Output 08/15/18 08/15/18 08/16/18 14:59 22:59 06:59 Intake Total 210 ml Balance 210 ml KALEE HERNANDEZ MD Aug 16, 2018 10:03
[2018-08-16 11:20] VITALS: BP 134/59
[2018-08-16 15:17] VITALS: BP 150/56
[2018-08-16 19:00] VITALS: BP 132/62
[2018-08-16] MEDS: ATORVASTATIN CALCIUM 10 MG TABLET. PO SCH (20:56)
[2018-08-16] MEDS: LACTOBACILLUS RHAMNOSUS GG 1 CAPSULE. PO SCH (20:56)
[2018-08-16 23:00] VITALS: BP 158/63
[2018-08-17 03:00] VITALS: BP 138/52
[2018-08-17 07:00] VITALS: BP 120/52
--- NOTE | 2018-08-17 07:59 | PDOC ---
PULMONARY PROGRESS NOTES Subjective sob better, has cough, no pain, is tired Vitals Vital Signs Date Time Temp Pulse Resp B/P (MAP) Pulse Ox O2 Delivery O2 Flow Rate FiO2 08/17/18 03:00 98.0 73 22 138/52 (80) 90 Nasal Cannula 3.0 98.0 ROS: No Nausea, No Chest Pain General: Alert HEENT: Other (nc at perrl) Lungs: Crackles, Other (a few end exp wheezing) Cardiovascular: S1, S2 Abdomen: Soft, Non-tender Neuro Exam: Alert, Oriented Extremities: No Edema Skin: Warm Labs Laboratory Tests Test 08/15/18 11:50 08/15/18 16:49 08/15/18 20:39 08/16/18 07:15 Glucose (Fingerstick) 238 mg/dL (70-99) 202 mg/dL (70-99) 263 mg/dL (70-99) 158 mg/dL (70-99) Test 08/16/18 10:50 08/16/18 16:41 08/16/18 20:42 Glucose (Fingerstick) 136 mg/dL (70-99) 225 mg/dL (70-99) 200 mg/dL (70-99) Laboratory Tests Test 08/16/18 10:50 08/16/18 16:41 08/16/18 20:42 Glucose (Fingerstick) 136 mg/dL (70-99) 225 mg/dL (70-99) 200 mg/dL (70-99) Medications Active Scripts Medications Dose Route/Sig Max Daily Dose Days Date Category Pravachol (Pravastatin Sodium) 20 Mg Tablet 1 Tab PO QHS 08/14/18 Reported Oseltamivir Phosphate 75 Mg Capsule 75 Mg PO BID 08/14/18 Reported Ferrous Sulfate 325 Mg Tablet 325 Mg PO DAILY 08/14/18 Reported Aspir-Low (Aspirin) 81 Mg Tablet.dr 81 Mg PO DAILY 08/14/18 Reported Metformin Hcl 500 Mg Tablet 1,000 Mg PO DAILY 08/14/18 Reported Lisinopril-Hctz 10-12.5 Mg Tab (Lisinopril/Hydrochlorothiazide) 1 Each Tablet 1 Tab PO DAILY 08/14/18 Reported Glimepiride 2 Mg Tablet 2 Mg PO DAILY 08/14/18 Reported Impression . IMPRESSION: 1. Influenza A pneumonia, cannot exclude a superimposed bacterial pneumonia. 2. Underlying chronic obstructive pulmonary disease from at least 45 years of tobacco use. Unknown FEV1. Quit just 5 days ago. 3. Acute hypoxic respiratory failure secondary to pneumonia and underlying chronic obstructive pulmonary disease w ae. 4. Underlying obesity with a body mass index of 37. ? SCOTT Plan . RECOMMENDATIONS: 1. oxygen titration to keep 02 sat 92% 2. Continue with current Tamiflu. 3. Continue with oral Levaquin. 4. BD, DuoNebs. prednisone 5. Follow chest x-ray in am 6. Influenza precautions. 7. psg out pt 8. increase activity Discussed with pt JAMES CAMERON MD Aug 17, 2018 07:59
[2018-08-17] MEDS: IPRATRPIUM/ALBUTEROL 0.5/2.5MG 3 ML NEBU. NEB SCH ×4 (08:41→20:10)
[2018-08-17] MEDS: NYSTATIN TOPICAL POWDER 15GM BOTTLE. TP SCH ×2 (09:00→20:58)
[2018-08-17] MEDS: OSELTAMIVIR 30 MG CAPSULE PO SCH ×2 (09:03→20:58)
[2018-08-17] MEDS: ASPIRIN ENTERIC COATED 81 MG TABLET.DR. PO SCH (09:03)
[2018-08-17] MEDS: LISINOPRIL 20 MG TABLET PO SCH (09:03)
[2018-08-17] MEDS: LACTOBACILLUS RHAMNOSUS GG 1 CAPSULE. PO SCH ×2 (09:03→20:58)
[2018-08-17] MEDS: GLIMEPIRIDE 2 MG TABLET. PO SCH (09:03)
[2018-08-17] MEDS: metFORMIN 500 MG TABLET PO SCH (09:03)
[2018-08-17] MEDS: predniSONE 20 MG TABLET PO SCH (09:04)
[2018-08-17] MEDS: FERROUS SULFATE 325 MG TABLET. PO SCH (09:04)
[2018-08-17 11:00] VITALS: BP 162/65
--- NOTE | 2018-08-17 14:42 | PDOC ---
PROGRESS NOTES Subjective Subjective Patient states that she still is not feeling much better. PT/OT recc SNU Objective Objective Vital Signs Date Time Temp Pulse Resp B/P (MAP) Pulse Ox O2 Delivery O2 Flow Rate FiO2 08/17/18 11:56 Nasal Cannula 3.0 08/17/18 11:00 97.5 86 22 162/65 (97) 88 97.5 Intake and Output 08/17/18 07:00 Intake Total 1370 ml Balance 1370 ml Intake Oral 1370 ml # Voids 8 # Bowel Movements 1 Physical Exam Abdomen: Normal bowel sounds Heart: Regular rate Extremities: No edema General: Alert Lungs: Clear to auscultation Assessment Assessment Problems Medical Problems: (1) Hypoxia Status: Acute (2) Pneumonia Status: Acute Acute on chronic respiratory failure Pneumonia Flu A DM2 HTN HLD CLL CKD- stage 2 Plan Plan of Care Continue pulm toilet Continue IV antibx and tamaflu Proceed with PT/OT SNU in AM Comment Review of Relevant I have reviewed the following items candice (where applicable) has been applied. Labs Laboratory Tests Test 08/15/18 16:49 08/15/18 20:39 08/16/18 07:15 08/16/18 10:50 Glucose (Fingerstick) 202 mg/dL (70-99) 263 mg/dL (70-99) 158 mg/dL (70-99) 136 mg/dL (70-99) Test 08/16/18 16:41 08/16/18 20:42 08/17/18 07:50 08/17/18 10:47 Glucose (Fingerstick) 225 mg/dL (70-99) 200 mg/dL (70-99) 76 mg/dL (70-99) 136 mg/dL (70-99) Laboratory Tests Test 08/16/18 16:41 08/16/18 20:42 08/17/18 07:50 08/17/18 10:47 Glucose (Fingerstick) 225 mg/dL (70-99) 200 mg/dL (70-99) 76 mg/dL (70-99) 136 mg/dL (70-99) Microbiology 08/14/18 Blood Culture - Preliminary, Resulted NO GROWTH AFTER 3 DAYS Medications Current Medications Albuterol/ Ipratropium (Duoneb) 3 ml 1X ONCE NEB Last administered on at 10:14; Start 08/14/18 at 10:00; Stop 08/14/18 at 10:01; Status DC Ceftriaxone Sodium (Rocephin) 1 gm 1X ONCE IVP Last administered on 08/14/18 11:58; Start 08/14/18 at 10:30; Stop 08/14/18 at 10:32; Status DC Azithromycin 250 ml @ 250 mls/hr 1X ONCE IV Last administered on 08/14/18 12 :06; Start 08/14/18 at 10:30; Stop 08/14/18 at 11:29; Status DC Oseltamivir Phosphate (Tamiflu) 75 mg BID PO Last administered on 08/14/18 12: 28; Start 08/14/18 at 12:30; Stop 08/14/18 at 20:26; Status DC Nystatin (Nystop) 1 mena BID TP Last administered on 08/17/18 09:00; Start at 21:00 Aspirin (Ecotrin) 81 mg DAILY PO Last administered on 08/17/18 09:03; Start at 09:00 Ferrous Sulfate (Feosol) 325 mg DAILY PO Last administered on 08/17/18 09:04; Start 08/15/18 at 09:00 Glimepiride (Amaryl) 2 mg DAILY PO Last administered on 08/17/18 09:03; Start 08/15/18 at 09:00 Oseltamivir Phosphate (Tamiflu) 75 mg BID PO Last administered on 08/15/18 10: 17; Start 08/14/18 at 21:00; Stop 08/15/18 at 11:51; Status DC Non-Formulary Medication (Lisinopril/ Hydrochlorothiazide (Lisinopril-Hctz 10- 12.5 Mg Tab)) 1 tab DAILY PO ; Start 08/15/18 at 09:00; Status UNV Metformin HCl (Glucophage) 1,000 mg DAILY PO Last administered on 08/17/18 09: 03; Start 08/15/18 at 09:00 Atorvastatin Calcium (Lipitor) 5 mg QHS PO Last administered on 08/16/18at 20:56 ; Start 08/14/18 at 21:00 Lisinopril (Prinivil) 10 mg DAILY PO ; Start 08/15/18 at 09:00; Stop 08/15/18 at 09:00; Status DC Hydrochlorothiazide (Microzide) 12.5 mg DAILY PO ; Start 08/15/18 at 09:00; Stop 08/15/18 at 09:00; Status DC Albuterol Sulfate (Ventolin Neb Soln) 2.5 mg PRN Q2HRS PRN NEB SHORTNESS OF BREATH; Start 08/14/18 at 23:00 Lisinopril (Prinivil) 20 mg DAILY PO Last administered on 08/17/18at 09:03; Start 08/15/18 at 09:00 Levofloxacin (Levaquin) 500 mg DAILY06 PO Last administered on 08/17/18at 06:24 ; Start 08/15/18 at 07:00 Prednisone (Prednisone) 60 mg DAILY PO Last administered on 08/17/18at 09:04; Start 08/15/18 at 09:00 Loperamide HCl (Imodium) 2 mg PRN Q15MIN PRN PO DIARRHEA Last administered on at 19:57; Start 08/15/18 at 08:00 Oseltamivir Phosphate (Tamiflu) 30 mg BID PO Last administered on 08/17/18 09: 03; Start 08/15/18 at 21:00; Stop 08/19/18 at 20:59 Albuterol/ Ipratropium (Duoneb) 3 ml RTQID NEB Last administered on 08/17/18at 11:56; Start 08/15/18 at 12:00 Lactobacillus Rhamnosus (Culturelle) 1 cap BID PO Last administered on at 09:03; Start 08/16/18 at 21:00 Active Scripts Active Reported Pravachol (Pravastatin Sodium) 20 Mg Tablet 1 Tab PO QHS Oseltamivir Phosphate 75 Mg Capsule 75 Mg PO BID Ferrous Sulfate 325 Mg Tablet 325 Mg PO DAILY Aspir-Low (Aspirin) 81 Mg Tablet.dr 81 Mg PO DAILY Metformin Hcl 500 Mg Tablet 1,000 Mg PO DAILY Lisinopril-Hctz 10-12.5 Mg Tab (Lisinopril/Hydrochlorothiazide) 1 Each Tablet 1 Tab PO DAILY Glimepiride 2 Mg Tablet 2 Mg PO DAILY Vitals/I & O Vital Sign - Last 24 Hours 08/16/18 08/16/18 08/16/18 08/16/18 15:17 16:01 19:00 20:00 Temp 97.5 98.3 97.5 98.3 Pulse 84 82 Resp B/P (MAP) 150/56 (87) 132/62 (85) Pulse Ox 92 92 90 O2 Delivery Nasal Cannula Nasal Cannula Nasal Cannula Nasal Cannula O2 Flow Rate 3.0 4.0 3.0 4.0 08/16/18 08/17/18 08/17/18 08/17/18 23:00 03:00 07:00 08:00 Temp 98.0 98.0 97.6 98.0 98.0 97.6 Pulse 100 73 83 Resp B/P (MAP) 158/63 (94) 138/52 (80) 120/52 (74) Pulse Ox 90 90 100 O2 Delivery Nasal Cannula Nasal Cannula Nasal Cannula Nasal Cannula O2 Flow Rate 3.0 3.0 4.0 2.0 08/17/18 08/17/18 08/17/18 08/17/18 08:48 09:03 11:00 11:56 Temp 97.5 97.5 Pulse 83 86 B/P (MAP) 120/52 162/65 (97) Pulse Ox 97 88 O2 Delivery Nasal Cannula Nasal Cannula Nasal Cannula O2 Flow Rate 4.0 3.0 3.0 Intake and Output 08/16/18 08/16/18 08/17/18 15:00 23:00 07:00 Intake Total 300 ml 450 ml 620 ml Balance 300 ml 450 ml 620 ml KALEE HERNANDEZ MD Aug 17, 2018 14:42
[2018-08-17 15:00] VITALS: BP 151/81
[2018-08-17 19:00] VITALS: BP 176/79
[2018-08-17] MEDS: ATORVASTATIN CALCIUM 10 MG TABLET. PO SCH (20:58)
[2018-08-17 23:00] VITALS: BP 156/78
--- NOTE | 2018-08-18 01:16 | NUR ---
Positive sepsis screen. ICU nurse notified, ICU nurse stated that the labs were 2 days old and could not be counted. Current labs will be needed to make an accurate assessment.
[2018-08-18 03:00] VITALS: BP 143/69
[2018-08-18 07:00] VITALS: BP 114/58
[2018-08-18] MEDS: IPRATRPIUM/ALBUTEROL 0.5/2.5MG 3 ML NEBU. NEB SCH ×4 (07:59→19:46)
--- NOTE | 2018-08-18 08:37 | PDOC ---
PROGRESS NOTES Subjective Subjective Patient reports MENA is improving. Wants to go home when ready for discharge, does not think she needs penitentiary. Objective Objective Vital Signs Date Time Temp Pulse Resp B/P (MAP) Pulse Ox O2 Delivery O2 Flow Rate FiO2 08/18/18 08:00 Nasal Cannula 3.0 08/18/18 03:00 97.6 77 22 143/69 (93) 91 97.6 Intake and Output 08/18/18 07:00 Intake Total 1040 ml Balance 1040 ml Intake Oral 1040 ml # Voids 8 # Bowel Movements 3 Physical Exam Abdomen: Normal bowel sounds, Soft, No tenderness Heart: Regular rate Extremities: No edema General: Alert, Oriented X3, No acute distress Lungs: Other (BS moderately decreased throughout, no wheezes heard) Assessment Assessment Problems Medical Problems: (1) Hypoxia Status: Acute (2) Pneumonia Status: Acute Plan Plan of Care 1. Acute respiratory failure with influenza, possible pneumonia and COPD exacerbation - improving, continue Levaquin, nebs, O2 and decreased Prednisone. 6 minute walk ordered. 2. DM2 - glucose elevated and A1C above goal - increase Glimepiride and continue Metformin and SS. Decreasing Prednisone should also improve hyperglycemia. 3. HTN - controlled, continue Lisinopril. 4. tobaccoism - smoking cessation discussed. Patient states she intends to try but still has 10 cartons of cigarettes at home... 5. discharge planning - PT had initially advised penitentiary for patient but she feels she can go home. Advised to work with PT today and see how she feels. Should be ready for discharge tomorrow. Comment Review of Relevant I have reviewed the following items candice (where applicable) has been applied. Labs Laboratory Tests Test 08/16/18 10:50 08/16/18 16:41 08/16/18 16:50 08/16/18 20:42 Glucose (Fingerstick) 136 mg/dL (70-99) 225 mg/dL (70-99) 200 mg/dL (70-99) Clostridium difficile Toxin B Gene Negative (Negative) Test 08/17/18 07:50 08/17/18 10:47 08/17/18 16:56 08/17/18 21:29 Glucose (Fingerstick) 76 mg/dL (70-99) 136 mg/dL (70-99) 275 mg/dL (70-99) 332 mg/dL (70-99) Test 08/18/18 08:04 Glucose (Fingerstick) 78 mg/dL (70-99) Laboratory Tests Test 08/17/18 10:47 08/17/18 16:56 08/17/18 21:29 08/18/18 08:04 Glucose (Fingerstick) 136 mg/dL (70-99) 275 mg/dL (70-99) 332 mg/dL (70-99) 78 mg/dL (70-99) Microbiology 08/14/18 Blood Culture - Preliminary, Resulted NO GROWTH AFTER 3 DAYS Medications Current Medications Albuterol/ Ipratropium (Duoneb) 3 ml 1X ONCE NEB Last administered on 10:14; Start 08/14/18 at 10:00; Stop 08/14/18 at 10:01; Status DC Ceftriaxone Sodium (Rocephin) 1 gm 1X ONCE IVP Last administered on 08/14/18at 11:58; Start 08/14/18 at 10:30; Stop 08/14/18 at 10:32; Status DC Azithromycin 250 ml @ 250 mls/hr 1X ONCE IV Last administered on 08/14/18at 12 :06; Start 08/14/18 at 10:30; Stop 08/14/18 at 11:29; Status DC Oseltamivir Phosphate (Tamiflu) 75 mg BID PO Last administered on 08/14/18at 12: 28; Start 08/14/18 at 12:30; Stop 08/14/18 at 20:26; Status DC Nystatin (Nystop) 1 mena BID TP Last administered on 08/17/18at 20:58; Start at 21:00 Aspirin (Ecotrin) 81 mg DAILY PO Last administered on 08/17/18at 09:03; Start at 09:00 Ferrous Sulfate (Feosol) 325 mg DAILY PO Last administered on 08/17/18at 09:04; Start 08/15/18 at 09:00 Glimepiride (Amaryl) 2 mg DAILY PO Last administered on 08/17/18at 09:03; Start 08/15/18 at 09:00 Oseltamivir Phosphate (Tamiflu) 75 mg BID PO Last administered on 08/15/18at 10: 17; Start 08/14/18 at 21:00; Stop 08/15/18 at 11:51; Status DC Non-Formulary Medication (Lisinopril/ Hydrochlorothiazide (Lisinopril-Hctz 10- 12.5 Mg Tab)) 1 tab DAILY PO ; Start 08/15/18 at 09:00; Status UNV Metformin HCl (Glucophage) 1,000 mg DAILY PO Last administered on 08/17/18 09: 03; Start 08/15/18 at 09:00 Atorvastatin Calcium (Lipitor) 5 mg QHS PO Last administered on 08/17/18at 20:58 ; Start 08/14/18 at 21:00 Lisinopril (Prinivil) 10 mg DAILY PO ; Start 08/15/18 at 09:00; Stop 08/15/18 at 09:00; Status DC Hydrochlorothiazide (Microzide) 12.5 mg DAILY PO ; Start 08/15/18 at 09:00; Stop 08/15/18 at 09:00; Status DC Albuterol Sulfate (Ventolin Neb Soln) 2.5 mg PRN Q2HRS PRN NEB SHORTNESS OF BREATH; Start 08/14/18 at 23:00 Lisinopril (Prinivil) 20 mg DAILY PO Last administered on 08/17/18at 09:03; Start 08/15/18 at 09:00 Levofloxacin (Levaquin) 500 mg DAILY06 PO Last administered on 08/18/18at 05:31 ; Start 08/15/18 at 07:00 Prednisone (Prednisone) 60 mg DAILY PO Last administered on 08/17/18at 09:04; Start 08/15/18 at 09:00 Loperamide HCl (Imodium) 2 mg PRN Q15MIN PRN PO DIARRHEA Last administered on 19:57; Start 08/15/18 at 08:00 Oseltamivir Phosphate (Tamiflu) 30 mg BID PO Last administered on 08/17/18 20: 58; Start 08/15/18 at 21:00; Stop 08/19/18 at 20:59 Albuterol/ Ipratropium (Duoneb) 3 ml RTQID NEB Last administered on 08/18/18at 07:59; Start 08/15/18 at 12:00 Lactobacillus Rhamnosus (Culturelle) 1 cap BID PO Last administered on 3/17/ 19at 20:58; Start 08/16/18 at 21:00 Active Scripts Active Reported Pravachol (Pravastatin Sodium) 20 Mg Tablet 1 Tab PO QHS Oseltamivir Phosphate 75 Mg Capsule 75 Mg PO BID Ferrous Sulfate 325 Mg Tablet 325 Mg PO DAILY Aspir-Low (Aspirin) 81 Mg Tablet.dr 81 Mg PO DAILY Metformin Hcl 500 Mg Tablet 1,000 Mg PO DAILY Lisinopril-Hctz 10-12.5 Mg Tab (Lisinopril/Hydrochlorothiazide) 1 Each Tablet 1 Tab PO DAILY Glimepiride 2 Mg Tablet 2 Mg PO DAILY Vitals/I & O Vital Sign - Last 24 Hours 08/17/18 08/17/18 08/17/18 08/17/18 08:48 09:03 11:00 11:56 Temp 97.5 97.5 Pulse 83 86 Resp 22 B/P (MAP) 120/52 162/65 (97) Pulse Ox 97 88 O2 Delivery Nasal Cannula Nasal Cannula Nasal Cannula O2 Flow Rate 4.0 3.0 3.0 08/17/18 08/17/18 08/17/18 08/17/18 15:00 16:10 19:00 20:00 Temp 97.7 98.4 97.7 98.4 Pulse 100 99 Resp B/P (MAP) 151/81 (104) 176/79 (111) Pulse Ox 88 90 O2 Delivery Nasal Cannula Nasal Cannula Nasal Cannula Nasal Cannula O2 Flow Rate 3.0 3.0 3.0 2.0 08/17/18 08/17/18 08/18/18 08/18/18 20:11 23:00 03:00 08:00 Temp 98.4 97.6 98.4 97.6 Pulse 103 77 Resp B/P (MAP) 156/78 (104) 143/69 (93) Pulse Ox 91 91 O2 Delivery Nasal Cannula Nasal Cannula Nasal Cannula Nasal Cannula O2 Flow Rate 3.0 3.0 3.0 3.0 Intake and Output 08/17/18 08/17/18 08/18/18 15:00 23:00 07:00 Intake Total 350 ml 450 ml 240 ml Balance 350 ml 450 ml 240 ml NAOMI HUANG MD Aug 18, 2018 08:37
--- NOTE | 2018-08-18 08:46 | RAD ---
AP and Lateral Views of the Chest 08/18/2018 5:00 AM Indication: Follow-up, bilateral interstitial infiltrates Comparison: Chest radiograph August 14, 2018 chest radiograph March 31, 2009 Findings: No pneumothorax or significant pleural effusion is identified. Bilateral basilar predominant interstitial opacities are similar to most recent comparison exam. Appearance as increased since comparison study from March 2009. Heart size appears to be top normal but stable. No acute osseous changes are noted in the interim. IMPRESSION: Persistent bilateral, basilar predominant interstitial opacities. Findings could represent interstitial pneumonia, progression of interstitial lung disease. Correlate with clinical findings and consider CT imaging as clinically indicated. Electronically signed by: Rico Argueta MD (08/18/2018 8:42 AM) [id number]
[2018-08-18] MEDS: NYSTATIN TOPICAL POWDER 15GM BOTTLE. TP SCH ×2 (09:00→21:06)
[2018-08-18] MEDS: predniSONE 20 MG TABLET PO SCH (09:03)
[2018-08-18] MEDS: LACTOBACILLUS RHAMNOSUS GG 1 CAPSULE. PO SCH ×2 (09:03→21:06)
[2018-08-18] MEDS: LISINOPRIL 20 MG TABLET PO SCH (09:03)
[2018-08-18] MEDS: FERROUS SULFATE 325 MG TABLET. PO SCH (09:03)
[2018-08-18] MEDS: metFORMIN 500 MG TABLET PO SCH (09:04)
[2018-08-18] MEDS: OSELTAMIVIR 30 MG CAPSULE PO SCH ×2 (09:04→21:06)
[2018-08-18] MEDS: LOPERAMIDE 2 MG CAPSULE PO PRN (09:04)
[2018-08-18] MEDS: ASPIRIN ENTERIC COATED 81 MG TABLET.DR. PO SCH (09:04)
[2018-08-18] MEDS: GLIMEPIRIDE 2 MG TABLET. PO SCH (09:04)
--- NOTE | 2018-08-18 10:08 | NUR ---
SW following pt. PT/OT recommends SNU. Spoke with pt at bedside regarding SNU and pt declined. Pt wants to go home with home health services. Home health options provided to pt and pt agreeable with [facility] as they take her insurance. Pt will do a 6 min walk to [facility] 02 needs. Discussed with RN.
--- NOTE | 2018-08-18 10:52 | PDOC ---
PULMONARY PROGRESS NOTES Subjective sob better, has cough, no pain, is tired Vitals Vital Signs Date Time Temp Pulse Resp B/P (MAP) Pulse Ox O2 Delivery O2 Flow Rate FiO2 08/18/18 09:03 72 114/58 08/18/18 08:00 Nasal Cannula 3.0 08/18/18 07:00 97.4 18 99 97.4 ROS: No Nausea, No Chest Pain General: Alert HEENT: Other (nc at perrl) Lungs: Other (decrease bs) Cardiovascular: S1, S2 Abdomen: Soft, Non-tender Neuro Exam: Alert, Oriented Extremities: No Edema Skin: Warm Labs Laboratory Tests Test 08/16/18 10:50 08/16/18 16:41 08/16/18 16:50 08/16/18 20:42 Glucose (Fingerstick) 136 mg/dL (70-99) 225 mg/dL (70-99) 200 mg/dL (70-99) Clostridium difficile Toxin B Gene Negative (Negative) Test 08/17/18 07:50 08/17/18 10:47 08/17/18 16:56 08/17/18 21:29 Glucose (Fingerstick) 76 mg/dL (70-99) 136 mg/dL (70-99) 275 mg/dL (70-99) 332 mg/dL (70-99) Test 08/18/18 08:04 Glucose (Fingerstick) 78 mg/dL (70-99) Laboratory Tests Test 08/17/18 16:56 08/17/18 21:29 08/18/18 08:04 Glucose (Fingerstick) 275 mg/dL (70-99) 332 mg/dL (70-99) 78 mg/dL (70-99) Medications Active Scripts Medications Dose Route/Sig Max Daily Dose Days Date Category Pravachol (Pravastatin Sodium) 20 Mg Tablet 1 Tab PO QHS 08/14/18 Reported Oseltamivir Phosphate 75 Mg Capsule 75 Mg PO BID 08/14/18 Reported Ferrous Sulfate 325 Mg Tablet 325 Mg PO DAILY 08/14/18 Reported Aspir-Low (Aspirin) 81 Mg Tablet.dr 81 Mg PO DAILY 08/14/18 Reported Metformin Hcl 500 Mg Tablet 1,000 Mg PO DAILY 08/14/18 Reported Lisinopril-Hctz 10-12.5 Mg Tab (Lisinopril/Hydrochlorothiazide) 1 Each Tablet 1 Tab PO DAILY 08/14/18 Reported Glimepiride 2 Mg Tablet 2 Mg PO DAILY 08/14/18 Reported Impression . IMPRESSION: 1. Influenza A pneumonia, cannot exclude a superimposed bacterial pneumonia. 2. Underlying chronic obstructive pulmonary disease from at least 45 years of tobacco use. Unknown FEV1. Quit just 5 days ago. 3. Acute hypoxic respiratory failure secondary to pneumonia and underlying chronic obstructive pulmonary disease w ae. 4. Underlying obesity with a body mass index of 37. ? SCOTT Plan . RECOMMENDATIONS: 1. oxygen titration to keep 02 sat 92% 2. Continue with current Tamiflu.dc in am 3. Continue with oral Levaquin. 4. BD, DuoNebs. prednisone taper 5. Follow chest x-ray unchanged interstitial infiltrates, Rec ct chest in 4-6 weeks 6. Influenza precautions. 7. psg out pt 8. increase activity Discussed with pt dc plans per pcp ANNA PAUL MD Aug 18, 2018 10:52
[2018-08-18 11:00] VITALS: BP 157/74
[2018-08-18 15:00] VITALS: BP 157/75
[2018-08-18 19:00] VITALS: BP 145/77
[2018-08-18] MEDS: ATORVASTATIN CALCIUM 10 MG TABLET. PO SCH (21:06)
[2018-08-18 23:00] VITALS: BP 156/63
[2018-08-19 03:05] VITALS: BP 133/72
[2018-08-19 07:00] VITALS: BP 133/52
[2018-08-19] MEDS: IPRATRPIUM/ALBUTEROL 0.5/2.5MG 3 ML NEBU. NEB SCH ×2 (08:07→11:59)
--- NOTE | 2018-08-19 08:30 | NUR ---
Gave orange juice to raise blood sugar.
--- NOTE | 2018-08-19 08:50 | NUR ---
RE-CHECKED BLOOD SUGAR - NORMAL RANGE SUCCESSFUL
[2018-08-19] MEDS: NYSTATIN TOPICAL POWDER 15GM BOTTLE. TP SCH (09:00)
[2018-08-19] MEDS: LISINOPRIL 20 MG TABLET PO SCH (10:16)
[2018-08-19] MEDS: LACTOBACILLUS RHAMNOSUS GG 1 CAPSULE. PO SCH (10:17)
[2018-08-19] MEDS: ASPIRIN ENTERIC COATED 81 MG TABLET.DR. PO SCH (10:17)
[2018-08-19] MEDS: predniSONE 20 MG TABLET PO SCH (10:17)
[2018-08-19] MEDS: metFORMIN 500 MG TABLET PO SCH (10:17)
[2018-08-19] MEDS: OSELTAMIVIR 30 MG CAPSULE PO SCH (10:18)
[2018-08-19] MEDS: FERROUS SULFATE 325 MG TABLET. PO SCH (10:18)
[2018-08-19] MEDS: GLIMEPIRIDE 2 MG TABLET. PO SCH (10:18)
[2018-08-19 11:00] VITALS: BP_SYST 148
--- NOTE | 2018-08-19 12:34 | SNU/HH DC ---
DISCHARGE WITH HOME HEALTH DISCHARGE INFORMATION: Discharge Date: Aug 19, 2018 Final Diagnosis: Acute Respiratory Failure, COPD Exacerbation, pneumonia, influenza a, DM2, HTN, HLD, CLL, CKD-Stage 2 Condition on Discharge: Stable CODE STATUS: Code Status: Full HOME HEALTH: Face to Face: I certify this patient is under my care and that I, or a nurse practitioner or physician's butcher's assistant working with me, had a face to face encounter that meets the physician face to face encounter requirements with this patient on 08/19/18 Medical Complications: COPD, DM, HTN, Pneumonia Alf For: Assess Cardiopulm Status, Assess & Educate Safety, Assess/ Skilled Observatio, Diabetic Care Physical Therapy For: Evalulation/Treatment Home Health Aide For: Self-care HISTORIOGRAPHER For: Community Resources Pt Meets Homebound Status: Extreme weakness w/ amb., Fatigue w/ amb., Limited distance walking POST DISCHARGE ORDERS: Activity Instructions for Disc: Activity as tolerated Weight Bearing Status after Di: Full weight bearing DIET AFTER DISCHARGE: ADA CHECKS AFTER DISCHARGE: Checks after discharge: Check blood press - daily, Check blood sugar, ac/hs FOLLOW-UP: Follow up with: Dr. Cummings within 7 days TREATMENT/EQUIPMENT ORDERS: Discharge Respiratory Equipmen: Oxygen CERTIFICATION STATEMENT: Certification Statement: Certification Statement: Based on the above finding, I certify that this patient is confined to the home and needs intermittent snf care, physical therapy and/or speech therapy, or continues to need occupational therapy.~ This patient is under my care, and I have initiated the establishment of the plan of care.~ This patient will be followed by myself or a community physician who will periodically review the plan of care. Home Meds Reported Medications Pravastatin Sodium (PRAVACHOL) 20 Mg Tablet, 1 TAB PO QHS for HIGH CHOLESTEROL, #90 TAB 1 Refill 08/14/18 Oseltamivir Phosphate (Oseltamivir Phosphate) 75 Mg Capsule, 75 MG PO BID for INFLUENZA, CAP 08/14/18 Ferrous Sulfate (FERROUS SULFATE) 325 Mg Tablet, 325 MG PO DAILY for SUPPLEMENT , TAB 08/14/18 Aspirin (ASPIR-LOW) 81 Mg Tablet.dr, 81 MG PO DAILY for CIRCULATION., TAB.SR 08/14/18 Metformin Hcl (METFORMIN HCL) 500 Mg Tablet, 1000 MG PO DAILY for DIABETES, TAB 0 Refills 08/14/18 Lisinopril/Hydrochlorothiazide (LISINOPRIL-HCTZ 10-12.5 MG TAB) 1 Each Tablet, 1 TAB PO DAILY for HTN, #30 TAB 5 Refills 08/14/18 Glimepiride (GLIMEPIRIDE) 2 Mg Tablet, 2 MG PO DAILY for DIABETES, TAB 08/14/18 JASWANT CUMMINGS MD Aug 19, 2018 12:34
[2018-08-19] MEDS ORDERED: LEVO500T59 PO (12:39)
[2018-08-19] MEDS ORDERED: PRED20TA PO (12:39)
--- NOTE | 2018-08-19 12:39 | PDOC3 ---
Discharge Summary Visit Information Final Diagnosis Problems Medical Problems: (1) Hypoxia Status: Acute (2) Pneumonia Status: Acute Brief Hospital Course Allergies Allergies Coded Allergies Type Severity Reaction Last Updated Verified No Known Drug Allergies 08/14/18 No Vital Signs Vital Signs Date Time Temp Pulse Resp B/P (MAP) Pulse Ox O2 Delivery O2 Flow Rate FiO2 08/19/18 12:00 95 Nasal Cannula 3.0 08/19/18 11:00 97.8 78 16 148/ 97.8 Lab Results Laboratory Tests Test 08/17/18 16:56 08/17/18 21:29 08/18/18 08:04 08/18/18 16:17 Glucose (Fingerstick) 275 mg/dL (70-99) 332 mg/dL (70-99) 78 mg/dL (70-99) 291 mg/dL (70-99) Test 08/18/18 20:37 08/19/18 08:25 08/19/18 08:51 08/19/18 11:02 Glucose (Fingerstick) 286 mg/dL (70-99) 66 mg/dL (70-99) 94 mg/dL (70-99) 151 mg/dL (70-99) Laboratory Tests Test 08/18/18 16:17 08/18/18 20:37 08/19/18 08:25 08/19/18 08:51 Glucose (Fingerstick) 291 mg/dL (70-99) 286 mg/dL (70-99) 66 mg/dL (70-99) 94 mg/dL (70-99) Test 08/19/18 11:02 Glucose (Fingerstick) 151 mg/dL (70-99) Brief Hospital Course Ms. Yin is a 73 old [sex] who presented with [ ] Discharge Information Scheduled Aspirin (Aspir-Low) 81 Mg Tablet.dr, 81 MG PO DAILY for CIRCULATION., (Reported) Entered as Reported by: LIAM MONROE on 08/14/181646 Last Taken: 81MG. on 08/14/181643 Last Action: Continued on 08/14/182022 by KALEE HERNANDEZ Ferrous Sulfate (Ferrous Sulfate) 325 Mg Tablet, 325 MG PO DAILY for SUPPLEMENT, (Reported) Entered as Reported by: LIAM MONROE on 08/14/181646 Last Taken: 10MG. on 08/14/181645 Last Action: Continued on 08/14/182022 by KALEE HERNANDEZ Glimepiride (Glimepiride) 2 Mg Tablet, 2 MG PO DAILY for DIABETES, (Reported) Entered as Reported by: LIAM MONROE on 08/14/181646 Last Taken: 2MG. on 08/14/181635 Last Action: Continued on 08/14/182022 by KALEE HERNANDEZ Levofloxacin (Levaquin) 500 Mg Tablet, 500 MG PO DAILY06 for pna for 3 Days, #3 Prescribed by: JASWANT CUMMINGS MD on 08/19/18 1239 Lisinopril/Hydrochlorothiazide (Lisinopril-Hctz 10-12.5 Mg Tab) 1 Each Tablet, 1 TAB PO DAILY for HTN, #30 Ref 5 (Reported) Entered as Reported by: LIAM MONROE on 08/14/181646 Last Taken: 03/14.5 on 08/14/181636 Last Action: Converted on 08/14/182022 by KALEE HERNANDEZ Metformin Hcl (Metformin Hcl) 500 Mg Tablet, 1,000 MG PO DAILY for DIABETES, Ref 0 (Reported) Entered as Reported by: LIAM MONROE on 08/14/181646 Last Taken: 1000MG. on 08/14/181638 Last Action: Converted on 08/14/182022 by KALEE HERNANDEZ Oseltamivir Phosphate (Oseltamivir Phosphate) 75 Mg Capsule, 75 MG PO BID for INFLUENZA, (Reported) Entered as Reported by: LIAM MONROE on 08/14/181647 Last Taken: 75MG. on 08/14/181647 Last Action: Continued on 08/14/182022 by KALEE HERNANDEZ Pravastatin Sodium (Pravachol) 20 Mg Tablet, 1 TAB PO QHS for HIGH CHOLESTEROL, #90 Ref 1 (Reported) Entered as Reported by: LIAM MONROE on 08/14/181656 Last Taken: 10 MG. on Unknown Date & Time Last Action: Converted on 2022 by KALEE HERNANDEZ Prednisone (Prednisone) 20 Mg Tablet, 40 MG PO DAILY for copd exacerbation for 3 Days, #6 Prescribed by: JASWANT CUMMINGS MD on 08/19/18 1239 JASWANT CUMMINGS MD Aug 19, 2018 12:39
--- NOTE | 2018-08-19 13:24 | PDOC ---
PULMONARY PROGRESS NOTES Subjective sob better, has cough, no pain, is tired Vitals Vital Signs Date Time Temp Pulse Resp B/P (MAP) Pulse Ox O2 Delivery O2 Flow Rate FiO2 08/19/18 12:00 95 Nasal Cannula 3.0 08/19/18 11:00 97.8 78 16 148/ 97.8 ROS: No Nausea, No Chest Pain General: Alert HEENT: Other (nc at perrl) Lungs: Other (decrease bs) Cardiovascular: S1, S2 Abdomen: Soft, Non-tender Neuro Exam: Alert, Oriented Extremities: No Edema Skin: Warm Labs Laboratory Tests Test 08/17/18 16:56 08/17/18 21:29 08/18/18 08:04 08/18/18 16:17 Glucose (Fingerstick) 275 mg/dL (70-99) 332 mg/dL (70-99) 78 mg/dL (70-99) 291 mg/dL (70-99) Test 08/18/18 20:37 08/19/18 08:25 08/19/18 08:51 08/19/18 11:02 Glucose (Fingerstick) 286 mg/dL (70-99) 66 mg/dL (70-99) 94 mg/dL (70-99) 151 mg/dL (70-99) Laboratory Tests Test 08/18/18 16:17 08/18/18 20:37 08/19/18 08:25 08/19/18 08:51 Glucose (Fingerstick) 291 mg/dL (70-99) 286 mg/dL (70-99) 66 mg/dL (70-99) 94 mg/dL (70-99) Test 08/19/18 11:02 Glucose (Fingerstick) 151 mg/dL (70-99) Medications Active Scripts Medications Dose Route/Sig Max Daily Dose Days Date Category Pravachol (Pravastatin Sodium) 20 Mg Tablet 1 Tab PO QHS 08/14/18 Reported Oseltamivir Phosphate 75 Mg Capsule 75 Mg PO BID 08/14/18 Reported Ferrous Sulfate 325 Mg Tablet 325 Mg PO DAILY 08/14/18 Reported Aspir-Low (Aspirin) 81 Mg Tablet.dr 81 Mg PO DAILY 08/14/18 Reported Metformin Hcl 500 Mg Tablet 1,000 Mg PO DAILY 08/14/18 Reported Lisinopril-Hctz 10-12.5 Mg Tab (Lisinopril/Hydrochlorothiazide) 1 Each Tablet 1 Tab PO DAILY 08/14/18 Reported Glimepiride 2 Mg Tablet 2 Mg PO DAILY 08/14/18 Reported Impression . IMPRESSION: 1. Influenza A pneumonia, cannot exclude a superimposed bacterial pneumonia. 2. Underlying chronic obstructive pulmonary disease from at least 45 years of tobacco use. Unknown FEV1. Quit just 5 days ago. 3. Acute hypoxic respiratory failure secondary to pneumonia and underlying chronic obstructive pulmonary disease w ae. 4. Underlying obesity with a body mass index of 37. ? SCOTT Plan . RECOMMENDATIONS: 1. oxygen titration to keep 02 sat 92% 2. Continue with current Tamiflu.dc today 3. Continue with oral Levaquin. 4. BD, DuoNebs. prednisone taper 5. Follow chest x-ray unchanged interstitial infiltrates, Rec ct chest in 4-6 weeks 6. Influenza precautions. 7. psg out pt 8. increase activity Discussed with pt dc plans per pcp ANNA PAUL MD Aug 19, 2018 13:24
[2018-08-19 15:00] VITALS: BP 152/75
--- NOTE | 2018-08-19 15:11 | NUR ---
[facility] following pt. HH arranged by Annette from [facility]. Orders for 02 approved by [employer]akan joshi and EVELYN provided pt with a tank to take home. EV[facility]N also provided pt with a contact information for [facility] to call once she gets home so they can provide her with concentrator and equipment. Orders for walker faxed to [facility]. Johnnie from [facility] reported they will deliver walker to pt's home tomorrow if orders are approved. RN notified.
--- NOTE | 2018-08-19 15:27 | NUR ---
Patient discharged from hospital in wheelchair, to home via private vehicle.
--- NOTE | 2018-08-25 09:13 | PDOC3 ---
Discharge Summary Date of Admission: Aug 15, 2018 Date of Discharge: Aug 19, 2018 Follow-Up: Other ([address] Cummings) Admitting Diagnosis comment: Pneumonia, Influenza A FINAL DIAGNOSIS Acute respiratory failure- resolved, Influenza A, PNA, COPD Exacerbation, DM2, HTN, Tobaccoism Brief Hospital Course Pt is a 73yo CF admitted with respiratory failure 1. Acute respiratory failure with influenza, possible pneumonia and COPD exacerbation - improved. Pt no longer needing oxygen. Continued on Levaquin and Prednisone on discharge. 2. DM2 - glucose elevated and A1C above goal at 8.3. Glimepiride increased during hospitalization. Needs outpatient f/u 3. HTN - controlled, continue Lisinopril. 4. tobaccoism - smoking cessation discussed. Patient states she intends to try but still has 10 cartons of cigarettes at home CONDITION AT DISCHARGE: Improved Discharge Medications Current Medications Albuterol/ Ipratropium (Duoneb) 3 ml 1X ONCE NEB Last administered on at 10:14; Start 08/14/18 at 10:00; Stop 08/14/18 at 10:01; Status DC Ceftriaxone Sodium (Rocephin) 1 gm 1X ONCE IVP Last administered on 08/14/18at 11:58; Start 08/14/18 at 10:30; Stop 08/14/18 at 10:32; Status DC Azithromycin 250 ml @ 250 mls/hr 1X ONCE IV Last administered on 08/14/18at 12 :06; Start 08/14/18 at 10:30; Stop 08/14/18 at 11:29; Status DC Oseltamivir Phosphate (Tamiflu) 75 mg BID PO Last administered on 08/14/18at 12: 28; Start 08/14/18 at 12:30; Stop 08/14/18 at 20:26; Status DC Nystatin (Nystop) 1 mena BID TP Last administered on 08/18/18 21:06; Start at 21:00; Stop 08/19/18 at 15:44; Status DC Aspirin (Ecotrin) 81 mg DAILY PO Last administered on 08/19/18at 10:17; Start at 09:00; Stop 08/19/18 at 15:44; Status DC Ferrous Sulfate (Feosol) 325 mg DAILY PO Last administered on 08/19/18at 10:18; Start 08/15/18 at 09:00; Stop 08/19/18 at 15:44; Status DC Glimepiride (Amaryl) 2 mg DAILY PO Last administered on 08/17/18at 09:03; Start 08/15/18 at 09:00; Stop 08/18/18 at 08:32; Status DC Oseltamivir Phosphate (Tamiflu) 75 mg BID PO Last administered on 08/15/18 10: 17; Start 08/14/18 at 21:00; Stop 08/15/18 at 11:51; Status DC Non-Formulary Medication (Lisinopril/ Hydrochlorothiazide (Lisinopril-Hctz 10- 12.5 Mg Tab)) 1 tab DAILY PO ; Start 08/15/18 at 09:00; Status UNV Metformin HCl (Glucophage) 1,000 mg DAILY PO Last administered on 08/19/18 10: 17; Start 08/15/18 at 09:00; Stop 08/19/18 at 15:44; Status DC Atorvastatin Calcium (Lipitor) 5 mg QHS PO Last administered on 08/18/18at 21:06 ; Start 08/14/18 at 21:00; Stop 08/19/18 at 15:44; Status DC Lisinopril (Prinivil) 10 mg DAILY PO ; Start 08/15/18 at 09:00; Stop 08/15/18 at 09:00; Status DC Hydrochlorothiazide (Microzide) 12.5 mg DAILY PO ; Start 08/15/18 at 09:00; Stop 08/15/18 at 09:00; Status DC Albuterol Sulfate (Ventolin Neb Soln) 2.5 mg PRN Q2HRS PRN NEB SHORTNESS OF BREATH; Start 08/14/18 at 23:00; Stop 08/19/18 at 15:44; Status DC Lisinopril (Prinivil) 20 mg DAILY PO Last administered on 08/19/18at 10:16; Start 08/15/18 at 09:00; Stop 08/19/18 at 15:44; Status DC Levofloxacin (Levaquin) 500 mg DAILY06 PO Last administered on 08/19/18at 05:21 ; Start 08/15/18 at 07:00; Stop 08/19/18 at 15:44; Status DC Prednisone (Prednisone) 60 mg DAILY PO Last administered on 08/17/18 09:04; Start 08/15/18 at 09:00; Stop 08/18/18 at 08:32; Status DC Loperamide HCl (Imodium) 2 mg PRN Q15MIN PRN PO DIARRHEA Last administered on 09:04; Start 08/15/18 at 08:00; Stop 08/19/18 at 15:44; Status DC Oseltamivir Phosphate (Tamiflu) 30 mg BID PO Last administered on 08/19/18at 10: 18; Start 08/15/18 at 21:00; Stop 08/19/18 at 15:44; Status DC Albuterol/ Ipratropium (Duoneb) 3 ml RTQID NEB Last administered on 08/19/18at 11:59; Start 08/15/18 at 12:00; Stop 08/19/18 at 15:44; Status DC Lactobacillus Rhamnosus (Culturelle) 1 cap BID PO Last administered on at 10:17; Start 08/16/18 at 21:00; Stop 08/19/18 at 15:44; Status DC Glimepiride (Amaryl) 4 mg DAILY PO Last administered on 08/19/18 10:18; Start 08/18/18 at 09:00; Stop 08/19/18 at 15:44; Status DC Prednisone (Prednisone) 40 mg DAILY PO Last administered on 08/19/18 10:17; Start 08/18/18 at 09:00; Stop 08/19/18 at 15:44; Status DC Active Scripts Active Prednisone 20 Mg Tablet 40 Mg PO DAILY 3 Days Levaquin (Levofloxacin) 500 Mg Tablet 500 Mg PO DAILY06 3 Days Reported Pravachol (Pravastatin Sodium) 20 Mg Tablet 1 Tab PO QHS Oseltamivir Phosphate 75 Mg Capsule 75 Mg PO BID Ferrous Sulfate 325 Mg Tablet 325 Mg PO DAILY Aspir-Low (Aspirin) 81 Mg Tablet.dr 81 Mg PO DAILY Metformin Hcl 500 Mg Tablet 1,000 Mg PO DAILY Lisinopril-Hctz 10-12.5 Mg Tab (Lisinopril/Hydrochlorothiazide) 1 Each Tablet 1 Tab PO DAILY Glimepiride 2 Mg Tablet 2 Mg PO DAILY Allergies Allergies Coded Allergies Type Severity Reaction Last Updated Verified No Known Drug Allergies 08/14/18 No Disposition/Orders: D/C to Home JASWANT CUMMINGS MD Aug 25, 2018 09:13
== END 2018-08-19 15:27 | disposition home health service (06) | DRG 871 ==
LOC: ER 09:37 → 5 NORTH 11:59
PROVIDERS: ADMIT Family Medicine; ATTEND Family Medicine
DX: A41.9 Sepsis, unspecified organism (principal); J10.00 Influenza due to other identified influenza virus with unspecified type of pneumonia; J96.21 Acute and chronic respiratory failure with hypoxia; J44.0 Chronic obstructive pulmonary disease with (acute) lower respiratory infection; C91.10 Chronic lymphocytic leukemia of B-cell type not having achieved remission; E66.9 Obesity, unspecified; Z68.37 Body mass index [BMI] 37.0-37.9, adult; I12.9 Hypertensive chronic kidney disease with stage 1 through stage 4 chronic kidney disease, or unspecified chronic kidney disease; N18.2 Chronic kidney disease, stage 2 (mild); E11.22 Type 2 diabetes mellitus with diabetic chronic kidney disease; E78.00 Pure hypercholesterolemia, unspecified; E78.5 Hyperlipidemia, unspecified; F17.210 Nicotine dependence, cigarettes, uncomplicated; G47.33 Obstructive sleep apnea (adult) (pediatric); H54.62 Unqualified visual loss, left eye, normal vision right eye; Z82.3 Family history of stroke; Z83.3 Family history of diabetes mellitus; Z90.710 Acquired absence of both cervix and uterus; Z79.84 Long term (current) use of oral hypoglycemic drugs
CPT/HCPCS: 36415; 71046; 80048; 80053; 82962; 83036; 83605; 83880; 84484; 85007; 85025; 85610; 87040; 87045; 87177; 87493; 87804; 93005; 94618; 94640; 94760; 96365; 96375; J0456; J0696; J7512; J7620; 97110; 97530; 97535; 99285-25